=== PATIENT | female | born 1940 | race Caucasian/White ===

== ENCOUNTER 2016-10-05 02:09 | Inpatient (IN) ==
[2016-10-03 11:03] LABS: BILIRUBIN URINE NEGATIVE (NEGATIVE); BLOOD URINE NEGATIVE (NEGATIVE); COLOR YELLOW; GLUCOSE URINE NEGATIVE (NEGATIVE); LEUKOCYTES URINE NEGATIVE (NEGATIVE); NITRITE URINE NEGATIVE (NEGATIVE); PROTEIN URINE 30 mg/dL (NEGATIVE); SP GRAVITY URINE 1.016; TURBIDITY URINE CLEAR (CLEAR); URINE MICRO REVIEW NEEDED? NO; URINE SOURCE VOIDED; UROBILINOGEN URINE 2 mg/dL (NORMAL)
[2016-10-03 11:05] LABS: UR EPITHELIAL CELLS <10 /HPF (<10); URINE BACTERIA 4+ /HPF; URINE RBC <10 /HPF (<10); URINE WBC <10 /HPF (<10)
[2016-10-03 11:13] LABS: BASO% 0.3 % (0.0-0.8); EOS# 0.02 X1000 (0.0-0.7); EOS% 0.6 % (0.0-10.0); HEMATOCRIT 35.2 % (37.0-47.0); HEMOGLOBIN 11.6 g/dL (12.0-16.0); LYMPH# 0.96 X1000 (1.2-3.4); LYMPH% 26.8 % (20.5-51.1); MANUAL DIFF NEEDED? YES; MCH 36.7 PG (27-31); MCV 111.4 FL (81-99); MONO# 0.15 X1000 (0.11-0.59); MONO% 4.2 % (1.7-9.3); MPV 10.3 FL (7.4-10.4); NEUT% 68.1 % (42.2-75.2); PLT 131 X1000 (130-400); RBC 3.16 XMIL (4.2-5.4)
[2016-10-03 11:15] LABS: INR 1.11; PROTIME 11.7 Seconds (9.2-11.7)
[2016-10-03 11:32] LABS: CALCIUM 9.1 mg/dL (8.8-10.2)
[2016-10-03 11:36] LABS: LYMPHS 22 % (21-51)
--- NOTE | 2016-10-03 16:12 | EKG Report ---
Test Performed on : 10/03/2016 09:51:18 AM Test Reason : PAT Blood Pressure : / mmHG Vent. Rate : 069 BPM Atrial Rate : 069 BPM P-R Int : 092 ms QRS Dur : 102 ms QT Int : 414 ms P-R-T Axes : -18 -14 040 degrees QTc Int : 443 ms Sinus rhythm. with short RI with premature supraventricular complexes. Incomplete right bundle branch block Cannot rule out Anteroseptal infarct (cited on or before 10-JUN-2016) Abnormal ECG When compared with ECG of 10-JUN-2016 20:01, No significant change was found Confirmed by Karis MCNAMARA, Silvano Jefferson ([id number]) on 10/03/2016 7:32:18 PM
[2016-10-05] MEDS ORDERED: COLACE ONE (10:40)
[2016-10-05] MEDS ORDERED: REGLAN ONE (10:41)
[2016-10-05] MEDS ORDERED: PEPCID ONE (10:41)
[2016-10-05] MEDS ORDERED: KEFZOL 2 GM/D5W 2 GM/50 ML IVPB ONE (10:41)
[2016-10-05] MEDS ORDERED: LYRICA ONE (10:41)
[2016-10-05] MEDS ORDERED: LR 1,000 ML ONE ×2 (10:41→16:25)
[2016-10-05] MEDS ORDERED: CELEBREX ONE (10:42)
[2016-10-05] MEDS ORDERED: TOPROL XL PO ONE (11:45)
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
[2016-10-05] MEDS ORDERED: TORADOL ONE (13:22)
[2016-10-05] MEDS ORDERED: DURAMORPH ONE (13:22)
[2016-10-05] MEDS ORDERED: MARCAINE 0.25% PF/EPI 1:200,000 ONE (13:23)
[2016-10-05] MEDS ORDERED: EXPAREL 1.3% ONE (13:23)
[2016-10-05] MEDS ORDERED: NEOSPORIN G.U. IRRIGANT ONE (13:23)
[2016-10-05] MEDS ORDERED: CYKLOKAPRON 1,000 MG/NS 1,000 MG/100 ML IVPB ONE (13:23)
[2016-10-05] MEDS ORDERED: SODIUM CHLORIDE 0.9% ONE (13:23)
[2016-10-05] MEDS ORDERED: CLAVE SECONDARY SET 11953 ONE (13:24)
[2016-10-05] MEDS ORDERED: VANCOMYCIN ONE (13:29)
[2016-10-05 15:40] LABS: URINE MICRO REVIEW NEEDED? NO; URINE SOURCE CATH
[2016-10-05 15:53] LABS: BILIRUBIN URINE NEGATIVE (NEGATIVE); BLOOD URINE NEGATIVE (NEGATIVE); COLOR STRAW; GLUCOSE URINE NEGATIVE (NEGATIVE); LEUKOCYTES URINE NEGATIVE (NEGATIVE); NITRITE URINE NEGATIVE (NEGATIVE); PROTEIN URINE NEGATIVE (NEGATIVE); SP GRAVITY URINE 1.005; TURBIDITY URINE CLEAR (CLEAR); UROBILINOGEN URINE NORMAL (NORMAL)
[2016-10-05 15:54] LABS: UR EPITHELIAL CELLS <10 /HPF (<10); URINE BACTERIA 4+ /HPF; URINE RBC <10 /HPF (<10); URINE WBC <10 /HPF (<10)
[2016-10-05] MEDS ORDERED: NS 1,000 ML ONE (15:57)
[2016-10-05] MEDS ORDERED: FENTANYL ONE (16:03)
[2016-10-05] MEDS ORDERED: DIPRIVAN 1% ONE (16:03)
[2016-10-05] MEDS ORDERED: MORPHINE ONE (16:04)
[2016-10-05] MEDS ORDERED: DEMEROL ONE (16:11)
[2016-10-05] MEDS ORDERED: ZOFRAN ONE (16:24)
[2016-10-05] MEDS ORDERED: XYLOCAINE-MPF 2% ONE (16:24)
[2016-10-05] MEDS ORDERED: EPHEDRINE ONE (16:24)
--- NOTE | 2016-10-05 16:24 | Diag Imaging Result Document ---
PROCEDURE NAME: SHOULDER 1 VIEW RIGHT - 10/05/2016 RIGHT SHOULDER 1 VIEW: COMPARISON: 07/19/2016. FINDINGS: There has been total right shoulder arthroplasty. Alignment is anatomic. No hardware fracture or loosening. IMPRESSION: No evidence of complication.
[2016-10-05] MEDS ORDERED: DECADRON ONE (16:25)
[2016-10-05] MEDS ORDERED: OFIRMEV 1000 MG/ISOTONIC SOLN 1,000 MG/100 ML BOTTLE ONE (16:25)
[2016-10-05] MEDS ORDERED: QUELICIN (DOSE) ONE (16:25)
[2016-10-05] MEDS: DEMEROL ONE ×2 (16:33→16:38)
[2016-10-05] MEDS ORDERED: MORPHINE IV PRN (16:36)
[2016-10-05] MEDS ORDERED: NS 1,000 ML IV SCH (16:45)
[2016-10-05] MEDS ORDERED: ZOFRAN PO PRN (18:43)
[2016-10-05] MEDS: PERIDEX MT SCH (20:37)
[2016-10-05] MEDS: OXY IR PO PRN (20:37)
[2016-10-05] MEDS: TOPROL XL PO SCH (20:38)
[2016-10-05] MEDS: MARINOL PO SCH (22:13)
[2016-10-05] MEDS: KEFZOL 1 GM/D5W 1 GM/50 ML IVPB IV SCH (23:05)
--- NOTE | 2016-10-05 23:35 | OPERATIVE NOTE ---
PROCEDURE DATE: 10/05/2016 PREOPERATIVE DIAGNOSIS: Right displaced proximal humeral fracture. POSTOPERATIVE DIAGNOSIS: Right displaced proximal humeral fracture. PROCEDURE: Right reverse shoulder arthroplasty with DePuy Delta Xtend size 12, cemented stem, 42 + 9 humeral cup, 42 eccentric Glenosphere and standard metaglene. SURGEON: Bienvenido Jacob MD SERVICE ASSISTANT: Jimmy Chen SECOND TOWN MANAGER: LAVERNE Bettencourt and Alonzo Frye RN. ANESTHESIA: General. IV FLUIDS: 1400 mL lactated Ringer. ESTIMATED BLOOD LOSS: 200 mL. COMPLICATIONS: None. INDICATION: The patient is a 76-year-old female who is approximately 2-1/2 months status post injury to her right shoulder. The patient sustained a proximal humeral fracture. She seemed to have some residual displacement and has continued with significant pain and discomfort and recommendation to proceed with right reverse shoulder arthroplasty offered. Risks and benefits of surgery were explained, including the risks of anesthesia, , bleeding, infection, failure to relieve pain, postop stiffness, nerve injury, blood clots and other imponderables. All questions were answered. The patient and family wished to proceed with surgery. DETAILS OF OPERATION: The patient was taken to the operating room and placed supinely on the operating table. Once adequate anesthesia was obtained, the patient was placed in semi-[place] beach-chair position. The right shoulder was subsequently prepped and draped in usual sterile fashion. A standard deltopectoral incision made with skin knife. Medial and lateral skin envelopes were developed. The deltopectoral interval was then developed and the cephalic vein was retracted laterally. Conjoined tendon was then elevated as well and Martinez retractor was placed. The fracture site was identified. Debridement of the callus and tissue overlying the fracture site was then performed with a deep knife as well as with a rongeur. After this had been performed, the displaced humeral head was identified it was then removed after releasing the soft tissue. After that had been performed, attention was then turned to the glenoid. Circumferential dissection was then performed with a deep knife. After this had been performed, a guide was then placed and the guide pin was placed in position. The reaming was then conducted of the glenoid. The central hole was then dilated. The wound was copiously irrigated with antibiotic pulsatile lavage. A standard metaglene was then placed. Two locking screws were placed and 2 nonlocking screws. It had good purchase. The wound was copiously once again. This was followed by a 42 eccentric Glenosphere with eccentricity placed inferiorly. After this had been performed, attention was then turned to the proximal humerus. Reaming was then conducted up to size 12. A trial stem was then placed to determine the appropriate height. After this had been performed, the intramedullary canal was copiously with antibiotic pulsatile lavage while vancomycin was mixed in cement on back table. Cement was then placed in the intramedullary canal and a size 12 cemented stem was then placed at the appropriate height and approximately 20 degrees of retroversion. Excess cement was removed with a [place]. After cement had cured, trial cups were then placed. A +9 humeral cup had excellent range of motion and stability. Trial cup was then removed. The wound was copiously irrigated with antibiotic pulsatile lavage. A 42 humeral cup was then placed on the stem. The shoulder was then reduced, carried through range of motion, had excellent stability and range of motion. The wound was copiously irrigated once again. 2-0 Vicryl was then used to repair the subcutaneous tissue, followed by a running 2-0 Prolene. Adaptic, sterile 4 x 4's, ABD pad, and tape was applied to the right shoulder, followed by shoulder immobilizer. All counts were correct. Patient tolerated procedure well and was transferred to the recovery room in stable condition. cc: Bienvenido Jacob MD
[2016-10-06] MEDS: OXY IR PO PRN ×5 (05:30→21:01)
[2016-10-06] MEDS: KEFZOL 1 GM/D5W 1 GM/50 ML IVPB IV SCH (05:30)
[2016-10-06 06:09] LABS: CALCIUM 7.7 mg/dL (8.8-10.2); HEMATOCRIT 23.9 % (37.0-47.0); HEMOGLOBIN 7.9 g/dL (12.0-16.0); POTASSIUM 4.2 mmol/L (3.5-5.1)
[2016-10-06] MEDS: TOPROL XL PO SCH ×2 (09:20→20:58)
[2016-10-06] MEDS: PERIDEX MT SCH ×2 (09:20→21:01)
[2016-10-06] MEDS: MARINOL PO SCH ×2 (09:23→20:58)
--- NOTE | 2016-10-06 10:05 | PROGRESS NOTE ---
DATE: 10/06/2016 SUBJECTIVE: The patient is a pleasant, 76-year-old female, who is 1 day status post right reverse shoulder arthroplasty for a proximal humeral fracture. She is currently resting comfortably. OBJECTIVE: On physical exam, wound looks good. There are no signs of infection. She is grossly neurovascularly intact, able to flex thumb and fingers. LABS: Hemoglobin 7.9, hematocrit is 23.9. IMPRESSION: Postoperative day #1 status post right reverse shoulder arthroplasty. PLAN: At this point, we will change her dressing, discontinue her drain, and Hep-Lock her IV. We will mobilize physical therapy. She is currently asymptomatic with her acute blood loss anemia. We will consult Customer Security Clerk for discharge planning. cc: Bienvenido Jacob MD
--- NOTE | 2016-10-06 13:05 | Diag Imaging Result Document ---
PROCEDURE NAME: CHEST-2 VIEWS - 10/06/2016 FRONTAL AND LATERAL CHEST, 2 VIEWS. COMPARISON: Compared to 07/19/2016. FINDINGS: There has been prior surgery to the lower thoracic spine and to the right shoulder. The lungs are hyperexpanded. There is an increased AP diameter to the chest. The pulmonary vessels are small. There are multiple old rib fractures and thoracic compression fractures. The heart is not enlarged. No infiltrates. IMPRESSION: 1. Emphysema. 2. No pneumonia. 3. Multiple old rib fractures and thoracic compression fractures. [facility]
[2016-10-07] MEDS: OXY IR PO PRN (01:24)
[2016-10-07 05:50] LABS: HEMATOCRIT 24.8 % (37.0-47.0); HEMOGLOBIN 7.9 g/dL (12.0-16.0)
[2016-10-07] MEDS ORDERED: NORCO-10 PO PRN (06:39)
[2016-10-07] MEDS: TOPROL XL PO SCH ×2 (09:43→20:05)
[2016-10-07] MEDS: PERIDEX MT SCH ×2 (09:43→20:05)
[2016-10-07] MEDS: MARINOL PO SCH ×2 (09:43→20:04)
--- NOTE | 2016-10-07 10:00 | PROGRESS NOTE ---
DATE: 10/07/2016 SUBJECTIVE: June Wayne is a 76-year-old female, who is postoperative day 2 from a right reverse total shoulder arthroplasty. She complains of increased pain and confusion last night on the OxyContin. She requests to change to Lortab 10 #2 that she takes at home. OBJECTIVE: General: She is a well-developed, well-nourished female. She is alert and cooperative with the exam. She does not appear to be in any distress. Extremities: Her dressing is clean, dry, and intact. Her arm is neurovascularly intact. ASSESSMENT: Stable right reverse shoulder arthroplasty. PLAN: We will change her to [place] per her request. We will have her continue working on her physical therapy, and she will plan on going to rehab on Sunday. cc: MD Bienvenido Dowell MD
[2016-10-07] MEDS: NORCO-10 PO PRN ×3 (11:18→20:04)
[2016-10-08] MEDS: NORCO-10 PO PRN ×5 (00:15→22:26)
[2016-10-08 06:04] LABS: HEMATOCRIT 24.6 % (37.0-47.0); HEMOGLOBIN 7.8 g/dL (12.0-16.0)
[2016-10-08] MEDS: MARINOL PO SCH ×2 (08:23→22:22)
[2016-10-08] MEDS: TOPROL XL PO SCH ×2 (08:23→22:22)
[2016-10-08] MEDS: PERIDEX MT SCH ×2 (08:23→22:21)
[2016-10-08] MEDS ORDERED: MILK OF MAGNESIA PO PRN (19:04)
[2016-10-09] MEDS: NORCO-10 PO PRN ×4 (03:52→11:48)
--- NOTE | 2016-10-09 07:32 | PROGRESS NOTE ---
DATE: 10/09/2016 SUBJECTIVE: The patient is a 76-year-old female who is 4 days status post right reverse shoulder arthroplasty for a fracture. Patient is feeling better this morning. Had an episode of confusion over the weekend and her pain medication was switched from OxyIR to hydrocodone. She is much better this morning. She is awake, alert, and her confusion has resolved. PHYSICAL EXAMINATION: On physical exam of the right shoulder, her wound looks good. There are no signs of infection. She is neurovascularly intact throughout, able to flex thumb and fingers. DIAGNOSTIC DATA: Her hemoglobin and hematocrit from yesterday stabilized at 7.8 and 24.6, and she is asymptomatic. IMPRESSION: Postoperative day #4 status post right reverse total shoulder arthroplasty. PLAN: At this point, it is felt that the patient would benefit from inpatient rehabilitation. We will plan on discharging today. cc: Bienvenido Jacob MD
[2016-10-09 08:11] VITALS: BP 168/67
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
[2016-10-09] MEDS: MARINOL PO SCH (09:42)
[2016-10-09] MEDS: TOPROL XL PO SCH (09:42)
[2016-10-09] MEDS: PERIDEX MT SCH (09:42)
== END 2016-10-09 12:16 ==
LOC: SURHOLD 02:09 → 4N 16:59
PROVIDERS: ADMIT Orthopaedic Surgery Adult Reconstructive Orthopaedic Surgery; ATTEND Orthopaedic Surgery Adult Reconstructive Orthopaedic Surgery

== ENCOUNTER 2017-02-02 14:27 | Inpatient (IN) ==
[2017-02-02] MEDS ORDERED: NS 1,000 ML IV ONE ×3 (14:54→20:03)
[2017-02-02 15:47] LABS: ALLEN TEST YES; BE -7.1 mmoll (-3.0-3.0); BLOOD TYPE ARTERIAL; DRAW SITE L RADIAL; METHB 0.2 % (0.0-1.5); O2(CT) 12.3 mL/dL (15.0-23.0); PCO2(98.6) 31 mmHg (35-45); PO2(98.6) 86 mmHg (60-100); SAMPLE BLOOD; pH(98.6) 7.36 (7.35-7.45)
[2017-02-02 15:49] LABS: MODALITY CANNULA
[2017-02-02 15:49] LABS: BASO% 0.8 % (0.0-0.8); HEMOGLOBIN 9.4 g/dL (12.0-16.0); LYMPH# 0.18 X1000 (1.2-3.4); LYMPH% 15.1 % (20.5-51.1); MANUAL DIFF NEEDED? NO; MCH 34.1 PG (27-31); MCHC 31.3 g/dL (33-37); MCV 108.7 FL (81-99); MONO# 0.02 X1000 (0.11-0.59); MONO% 1.7 % (1.7-9.3); MPV 10.1 FL (7.4-10.4); NEUT% 82.4 % (42.2-75.2); PLT 141 X1000 (130-400); RBC 2.76 XMIL (4.2-5.4)
[2017-02-02 15:52] LABS: INR 1.23; PROTIME 13.1 Seconds (9.2-11.7); PTT 22.8 Seconds (22.0-36.0)
--- NOTE | 2017-02-02 15:53 | EKG Report ---
Test Performed on : 02/02/2017 3:39:32 PM Test Reason : Chest Pain Blood Pressure : / mmHG Vent. Rate : 097 BPM Atrial Rate : 100 BPM P-R Int : 080 ms QRS Dur : 094 ms QT Int : 356 ms P-R-T Axes : 094 008 088 degrees QTc Int : 452 ms Undetermined rhythm Nonspecific ST and T wave abnormality Abnormal ECG When compared with ECG of 18-JAN-2017 19:54, Current undetermined rhythm precludes rhythm comparison, needs review Criteria for Anterior infarct are no longer present T wave inversion no longer evident in Anterior leads Nonspecific T wave abnormality now evident in Lateral leads Unconfirmed Result
[2017-02-02 16:02] LABS: ALBUMIN 3.4 g/dL (3.5-5.0); CALCIUM 7.9 mg/dL (8.8-10.2); MAGNESIUM 1.2 mg/dL (1.5-2.7); POTASSIUM 3.1 mmol/L (3.5-5.1); TOTAL BILIRUBIN 1.29 mg/dL (0.20-1.00); TOTAL PROTEIN 9.5 g/dL (6.3-8.3)
[2017-02-02] MEDS ORDERED: MAGNESIUM SULFATE 2 GM/S.W.I. 2 GM/50 ML IVPB IV ONE (16:03)
[2017-02-02] MEDS ORDERED: NS + KCL 40 MEQ 1,000 ML IV SCH (16:03)
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
--- NOTE | 2017-02-02 16:35 | Diag Imaging Result Doc PS360 ---
CT NECK W/O CONTRAST - 02/02/2017 INDICATION: R neck swelling TECHNIQUE: A CT dose reduction protocol was used. COMPARISON: None FINDINGS: There is significant subcutaneous and deep soft tissue edema throughout the right neck extending from the mandibular angle to the clavicle. No definite focal drainable fluid collection. No abnormal soft tissue gas. No radiodense foreign bodies. There is effacement of the vallecula on the right side due to edema of the hypopharynx. Otherwise, no significant deviation of the pharynx. The thyroid gland is atrophic. There are some lucent bony lesions in the cervical spine scattered throughout. These are mostly well-defined. No fracture or dislocation. Significant multilevel disc degeneration is present. IMPRESSION: 1. Nonspecific soft tissue edema of the right side of the neck. No obvious mass or drainable fluid collection. 2. Effacement of the right vallecula due to edema of the hypopharynx. Please monitor for signs of airway compromise. 3. Abnormal bony lesions throughout the cervical and thoracic spine. Concerning for myeloma or metastatic disease. Electronically signed by Alfred Gallardo 02/02/2017 4:33 PM
--- NOTE | 2017-02-02 16:39 | Diag Imaging Result Doc PS360 ---
CT THORAX W/O CONTRAST - 02/02/2017 INDICATION: R NECK SWELLING TECHNIQUE: A CT dose reduction protocol was used. COMPARISON: Previous chest x-rays FINDINGS: There are numerous old bilateral chronic rib fractures. One of these on the left side exhibits nonunion. There are several thoracic spine compression fractures. Stable fusion rods at the lower thoracic spine. The sternum demonstrates ill-defined lucency and deformity consistent with bony disease such as myeloma. There is a right shoulder prosthesis. There is ill-defined edema throughout the right supraclavicular fossa. This extends to the anterior mediastinum. No drainable fluid collections. No mass or adenopathy. The lungs are fairly clear. The major airways are clear. Upper abdominal images are unremarkable. IMPRESSION: 1. Multifocal lucent bony lesions suggesting myeloma or metastatic disease. 2. No specific cardiothoracic disease otherwise. Electronically signed by Alfred Gallardo 02/02/2017 4:36 PM
--- NOTE | 2017-02-02 16:41 | Diag Imaging Result Doc PS360 ---
EXAM: CHEST-PORTABLE HISTORY: [place]ough TECHNIQUE: Single view of the chest was performed portably. COMPARISON: 01/23/2017 FINDINGS: Patient is rotated to the right. There are postsurgical changes thoracolumbar spine with rods and screws and a total right shoulder arthroplasty. There are multiple bilateral rib fractures which appear old. There are prominent interstitial markings compatible with chronic interstitial edema or fibrosis. There is cardiomegaly. There is blunting of the left lateral costophrenic angle consistent with a small amount of pleural fluid or thickening. No acute abnormalities are demonstrated. IMPRESSION: Stable chest. Interstitial prominence suggestive of chronic interstitial edema or fibrosis. Small amount of left pleural fluid versus thickening. Electronically signed by Lita Anderson 02/02/2017 4:38 PM
[2017-02-02] MEDS ORDERED: DECADRON IV ONE (17:04)
[2017-02-02] MEDS ORDERED: ZOSYN 3.375 GM in NS 50 ML IV ONE (17:05)
[2017-02-02] MEDS ORDERED: VANCOMYCIN 1 GM/NS 1 GM/250 ML IVPB IV ONE (17:05)
[2017-02-02] MEDS ORDERED: POTASSIUM CHLORIDE 40 MEQ/SWI 40 MEQ/100 ML IVPB IV ONE (17:57)
--- NOTE | 2017-02-02 18:08 | PROVIDER DOCUMENTATION ---
This chart was entered by Karol Ko Scribe, acting as scribe for Kathy Koroma MD. HPI-Rash/Wound/ReCheck - General Chief Complaint: Shortness of Breath Stated Complaint: neck swelling Time Seen by Provider: 02/02/17 14:54 Source: patient, family (daughter and son) Allergies/Adverse Reactions: Allergies Allergy/AdvReac Type Severity Reaction Status Date / Time No Known Allergies Allergy Verified 01/16/17 13:16 Home Medications: Home Medication List Medication Instructions Recorded Confirmed Last Taken Type Metoprolol Succinate 50 mg PO BID 10/05/16 01/18/17 01/17/17 08:00 History Fentanyl 25 mcg TD Q3D 12/04/16 01/18/17 01/17/17 08:10 History Hydrocodone/APAP 10 mg/325 mg 1 each PO Q6H PRN PRN 01/18/17 01/18/17 Unknown History [[place]-10] Ondansetron [Ondansetron Odt] 8 mg PO TID PRN PRN 01/18/17 01/18/17 Unknown History - History of Present Illness-Dermatology Nature of Presenting Problem: Pt is 77 y/o F presents to the ED with swelling, erythema and tenderness to right side of neck. Anusha PRATT states seeing Pt this am and Pt's neck was fine. Pt's daughter states she called Anusha Victor this am around 1030 and Anusha Victor RN stated to Pt's daughter that swelling and erythema was present and Pt was given an antibiotic prior to symptoms starting. Pt's son states Pt is on chemo and Pt had chemo yesterday. Pt's son states Dr. Vaughan changed her chemo meds yesterday. Pt's son states cancer has been present for 2 years. Location: reports: other (right side neck) Quality: reports: painful Severity: reports: moderate Onset/Duration: reports: this morning (1030) Timing: reports: still present, getting worse Context/Associated Symptoms: reports: swelling/mass/lumps (swelling right side of neck), tender area (right side of neck), other (erythema to right side of neck) Identifiable cause?: No Locality of Occurance: Home Similar Symptoms Previously?: Yes (present since this am ) Recently seen or treated by another doctor?: Yes (Pt had chemo yesterday. ) Review of Systems - Adult - REVIEW OF SYSTEMS - ADULT Constitutional: reports: no symptoms reported Eyes: reports: no symptoms reported Ears, Nose, Mouth & Throat: reports: no symptoms reported Cardiovascular: reports: no symptoms reported Respiratory: reports: no symptoms reported Gastrointestinal: reports: no symptoms reported Genitourinary: reports: no symptoms reported Musculoskeletal: reports: neck pain (right side of neck). denies: back pain, joint pain Integumentary: reports: other (erythema and swelling to right side of neck). denies: hives, itching, rash Neurological: reports: no symptoms reported Psychiatric: reports: no symptoms reported Endocrine: reports: no symptoms reported Hematologic/Lymphatic: reports: no symptoms reported Allergic/Immunologic: reports: no symptoms reported All Other Systems: Reviewed and Negative Past History - Adult - PAST MEDICAL HISTORY-ADULT Review of Records: reports: Nursing Assessment Review, Medications Reviewed, Social history reviewed & non-contributory. Major Childhood Illnesses: reports: denies history Cardiovascular: reports: HTN Respiratory: reports: denies history Gastrointestinal: reports: denies history Obstetrical/Gynecological: reports: denies history Genitourinary: reports: denies history Musculoskeletal: reports: denies history Neurological: reports: cancer/tumor Endocrine/Immune: reports: cancer Other Conditions: reports: denies history - PRIOR SURGERIES/PROCEDURES Surgical/Procedure History: reports: hysterectomy, back/neck (back), other ( hemerrhoids, brain surgery) - IMMUNIZATION STATUS Childhood Immunizations: See Nurse Assessment Flu Vaccine: See Nurse Assessment - FAMILY HISTORY Family History: reviewed, not pertinent - SOCIAL HISTORY Smoking: denies Substance Use: denies Living Situation: family Physical Exam-General - PHYSICAL EXAM-ADULT Initial Vital Signs Reviewed: Yes - CONSTITUTIONAL General Appearance: alert, no apparent distress. negative: lethargic, slow to respond - EYES Eyes: PERRL/EOMI, pink conjunctivae. negative: pale conjunctivae, sunken eyes - HEAD, EARS, NOSE, MOUTH & THROAT HENMT: normocephalic/atraumatic, moist mucous membranes, normal ENT inspection. negative: angioedema, hearing deficit - NECK Neck: tender lateral (right), other (swelling and erythema to right side of neck ). negative: normal inspection - RESPIRATORY Respiratory: chest non-tender, lungs clear, normal breath sounds. negative: crackles, rhonchi, wheezing, increased rate - CARDIOVASCULAR Cardiovascular: normal peripheral pulses, regular rate, rhythm. negative: tachycardia, systolic murmur - GASTROINTESTINAL (ABDOMEN) Abdominal Exam: normal bowel sounds, non tender, soft. negative: distended, guarding, hernia - MUSCULOSKELETAL Back Exam: normal inspection, no CVA tenderness, no vertebral tenderness. negative: ecchymosis, swelling Extremity: normal range of motion, normal inspection. negative: deformity, erythema, swelling - SKIN Integumentary: normal turgor, erythema (right sick of neck), swelling (right side of neck), tenderness (right side of neck), warm (right side of neck). negative: diaphoresis, ecchymosis, rash - NEUROLOGIC Neurologic: grossly normal. negative: aphasia, facial droop - PSYCHIATRIC Psych/Mental Status: normal mood/affect, oriented x 3. negative: paranoid, tearful Progress - PLAN OF CARE/RESULTS Progress/Plan/Lab Results: Vital Signs - 8 hr 02/02/17 14:37 02/02/17 17:33 Temperature 98.5 F Pulse Rate 95 H 105 H Respiratory Rate 18 24 Blood Pressure 104/49 125/58 O2 Sat by Pulse Oximetry 95 95 Laboratory Results - last 24 hr 02/02/17 02/02/17 02/02/17 15:17 15:17 15:17 WBC 1.19 L RBC 2.76 L Hgb 9.4 L Hct 30.0 L MCV 108.7 H MCH 34.1 H MCHC 31.3 L RDW Std Deviation 23.1 H Plt Count 141 MPV 10.1 Immature Gran % (Auto) 0.0 Neut % (Auto) 82.4 H Lymph % (Auto) 15.1 L [place] % (Auto) 1.7 Eos % (Auto) 0.0 Baso % (Auto) 0.8 Immature Gran # (Auto) 0.00 Neut # (Auto) 0.98 L Lymph # (Auto) 0.18 L [place] # (Auto) 0.02 L Eos # (Auto) 0.00 Baso # (Auto) 0.01 PT INR PTT (Actin FS) Specimen Type Sample Site pH pCO2 pO2 HCO3 Base Excess Oxyhemoglobin ABG O2 Sat (Calculated) ABG O2 Saturation ABG Carboxyhemoglobin ABG Methemoglobin Yordy Test A-a O2 Difference Total Hemoglobin Lactate Blood Gas Modality FiO2 % Sodium 138 Potassium 3.1 L D Chloride 103 Carbon Dioxide 20 L Anion Gap 15 BUN 38 H D Creatinine 1.4 H Estimated GFR/1.73 m2 37 BUN/Creatinine Ratio 27 Glucose 112 H Calculated Osmolality 285 Calcium 7.9 L Magnesium 1.2 L Total Bilirubin 1.29 H AST 26 ALT 18 Alkaline Phosphatase 82 Creatine Kinase 21 L Troponin T [id number]-[id number] Pept 5531 H Total Protein 9.5 H Albumin 3.4 L Globulin 6.1 Albumin/Globulin Ratio 0.6 02/02/17 02/02/17 02/02/17 15:17 15:23 15:35 WBC RBC Hgb Hct MCV MCH MCHC RDW Std Deviation Plt Count MPV Immature Gran % (Auto) Neut % (Auto) Lymph % (Auto) [place] % (Auto) Eos % (Auto) Baso % (Auto) Immature Gran # (Auto) Neut # (Auto) Lymph # (Auto) [place] # (Auto) Eos # (Auto) Baso # (Auto) PT 13.1 H INR 1.23 PTT (Actin FS) 22.8 Specimen Type ARTERIAL Sample Site L RADIAL pH 7.36 pCO2 31 L pO2 86 HCO3 19.4 L Base Excess -7.1 L Oxyhemoglobin 96.3 ABG O2 Sat (Calculated) 12.3 L ABG O2 Saturation 97.0 ABG Carboxyhemoglobin 0.50 ABG Methemoglobin 0.2 Yordy Test YES A-a O2 Difference 75.0 Total Hemoglobin 9.0 L Lactate 3.90 H Blood Gas Modality CANNULA FiO2 % 28.0 Sodium Potassium Chloride Carbon Dioxide Anion Gap BUN Creatinine Estimated GFR/1.73 m2 BUN/Creatinine Ratio Glucose Calculated Osmolality Calcium Magnesium Total Bilirubin AST ALT Alkaline Phosphatase Creatine Kinase Troponin T < 0.010 Pxi-X-Sazdwtnnucm Pept Total Protein Albumin Globulin Albumin/Globulin Ratio Orders Category Date Time Status Cardiac Monitoring DIRECTED Care 02/02/17 14:55 Active Saline Loc NOW Care 02/02/17 14:55 Active CHEST-PORTABLE [RAD] Stat Exams 02/02/17 14:[address] HEAD W/O CONTRAST [CT] Stat Exams 02/02/17 15:[address] NECK W/O CONTRAST [CT] Stat Exams 02/02/17 14:[address] THORAX W/O CONTRAST [CT] Routine Exams 02/02/17 Completed ABG [RESP] Routine Lab 02/02/17 15:35 Completed BLOOD CULTURE [BLDCUL] Stat Lab 02/02/17 17:03 Results CBC WITH ELECTRONIC DIFF [HEME] Stat Lab 02/02/17 15:17 Completed CK PROFILE [SP CHEM] Stat Lab 02/02/17 15:17 Completed COMPREHENSIVE METABOLIC PANEL [CHEM] Stat Lab 02/02/17 15:17 Completed MAGNESIUM [CHEM] Stat Lab 02/02/17 15:17 Completed PRO B-NATRIURETIC PEPTIDE Stat Lab 02/02/17 15:17 Completed PROTIME WITH INR [COAG] Stat Lab 02/02/17 15:17 Completed PTT [COAG] Stat Lab 02/02/17 15:17 Completed TROPONIN T Stat Lab 02/02/17 15:23 Completed 0.9% Sodium Chloride Inj [Ns] 1,000 ml Med 02/02/17 14:54 Discontinued IV 999 mls/hr Dexamethasone [Decadron] Med 02/02/17 17:04 Discontinued 20 mg IV NOW ONE Magnesium Sulfate 2 gm/S.w.i. [Magnesium Sulfate 2 gm/S Med 02/02/17 16:03 Discontinued .w.i] 2 gm in 50 ml IV NOW Ns + KCl 40 Meq 1,000 ml Med 02/02/17 16:03 Active IV 150 mls/hr Piperacillin/Tazobactam [Zosyn] 3.375 gm Med 02/02/17 17:05 Discontinued 0.9% Sodium Chloride Inj [Ns] 50 ml IV NOW Vancomycin 1 gm/Ns Med 02/02/17 17:05 Active 1 gm in 250 ml IV NOW EKG [EKG] Stat Ther 02/02/17 14:55 Draft Transfer/Admit Order [TRANSFER] Routine Transfer 02/02/17 17:20 Ordered Result Diagrams: 02/02/17 15:17 02/02/17 15:17 - XRAY 1 XRAY Study: Chest Impression: Abnormal (stable chest. interstitial prominence suggestive of chronic interstitial edema or fibrosis. small amount of left pleural fluid versus thickening.) - CT/MRI 1 CT Study: Head Impression: Normal CT Results: no acute disease or change from prior 2 CT Study: Cervical Spine Impression: Abnormal (nonspecific soft tissue edema of the right side of the neck. no obvious mass or drainable fluid collection. effacement of the right vallecula due to edema of the hypopharynx. please monitor for signs of airway compromise. abnormal bony lesions throughout the cervical and thoracic spine. concerning for myeloma or metastatic disease.) 3 CT Study: Thorax Impression: Abnormal (multifocal lucent bony lesions suggesting myeloma or metastatic disease. no specific cardiothoracic disease otherwise.) - CONSULTS/PCP/HOSPITALIST Notification #1 *Consult/PCP/Hospitalist*: LAVERNE Kendall for Hospitalist Time Discussed: 17:10 (Dr. Mejia accepted admit ) Reason/Comments: Dr. Koroma consulted with LAVERNE Kendall Consult Disposition: Admit #2 Consult: Dr. Carbajal's nurse Time Discussed: 17:22 Reason/Comments: Dr. Koroma consults with Dr. Carbajal's nurse about Pt. #3 Consult: Dr. Carbajal Time Discussed: 17:45 Reason/Comments: Dr. Koroma consulted with Dr. Carbajal about Pt. Consult Disposition: Will see in ED Departure - Departure Date of Disposition Decision: 02/02/17 Time of Disposition Decision: 17:10 DIAGNOSIS: Neck mass, History of chemotherapy, Multiple myeloma DIAGNOSIS: (Ruled Out): Pulsatile neck mass, Encounter for chemotherapy management Disposition: ADMITTED INPATIENT 09 Certified Medical Emergency: Emergent Condition: Stable Referrals and Follow-Ups: Julien Rosario [Primary Care Provider] - - Critical Care Note This patient required my direct & personal management of CC.: Yes Total Time (mins): 50 Critical Care Statement: This patient required my direct personal management to treat or rule out processes, the absence of which, could potentiallly result in sudden, clinically significant life or limb threatening deterioration. Attestation - Physician/ VALENTIN Attestation The physician spent face to face time with patient:: Yes Advanced Practice Provider documentation review:: Supervising physician onsite and consulted in the evaluation and care of this patient. The physician did have a face to face encounter with the patient. This chart was documented by the indicated scribe, (Karol Ko Scribe) and accurately reflects the services I performed and decisions made by me, Kathy Koroma MD, as attested by the provider's signature.
[2017-02-02] MEDS ORDERED: S2 RACEPINEPHRINE 2.25% INH ONE (18:22)
--- NOTE | 2017-02-02 18:37 | HISTORY AND PHYSICAL ---
PCP: Dr. Julien Rosario. CHIEF COMPLAINT: Neck swelling. HISTORY OF PRESENT ILLNESS: Mrs. Wayne is a 77-year-old female who currently resides at [facility], [place] for geriatric psychiatric evaluation. Apparently she was having visual hallucinations, paranoia and agitation and was admitted there for evaluation. She also has a significant history for multiple myeloma and is followed by Dr. Mcarthur. She received chemotherapy yesterday, apparently this was new chemo. This morning she started having significant swelling of her neck on the right side to the point where [facility], [place] became concerned and felt she needed ER evaluation. In the ER she had a head neck and chest CT, the neck CT showed nonspecific soft tissue edema of the right side of the neck but no obvious mass or drainable fluid. There was effacement of the right vallecula due to edema of the hypopharynx, there was also abnormal bony lesions throughout the cervical and thoracic spine. The patient herself is unable to give any type of history secondary to airway swelling and inability to talk. Currently she is on nasal cannula with maximum O2 saturation of 90% and audible stridor. Her laboratory data shows leukopenia and macrocytosis, she also has mild renal insufficiency and elevated total bilirubin. On ABG she is oxygenating and ventilating well but she does have a lactic acid of 3.9. Blood cultures have been obtained and broad-spectrum antibiotics have been initiated. We have discussed the case with the ER physician and ENT who plans to take her to immediate surgery. It is likely the patient will need intubation for airway protection, for this we will call anesthesia or possibly do it preoperatively. As such, she is critical and will be going to the ICU. PAST MEDICAL HISTORY: 1. Multiple myeloma on chemotherapy with most recent treatment yesterday. 2. Dementia. 3. History of Valium abuse. 4. Benign brain tumor status post craniotomy in 1990. 5. Hypertension. 6. Hyperlipidemia. 7. Chronic anemia. SURGICAL HISTORY: She has had a right shoulder replacement, hysterectomy, ORIF of the right leg, lumbar surgery and craniotomy. SOCIAL HISTORY: She currently resides at [facility], [place]. She is not a smoker. She does not drink. History of benzodiazepine abuse. FAMILY HISTORY: Noncontributory. REVIEW OF SYSTEMS: Unable to obtain. HOME MEDICATIONS: Currently being compiled. ALLERGIES: No known drug allergies. PHYSICAL EXAMINATION: VITAL SIGNS: Blood pressure is 125/58, heart rate 105, respiratory 24, O2 saturation 90% on 2 L, temperature is 98.5 degrees. GENERAL: This is a chronically ill and elderly appearing 77-year-old female lying in hospital bed in mild to moderate respiratory distress. NEUROLOGIC: She follows commands but is unable to speak clearly so orientation questions are impossible to obtain at this time. There is no overt focal deficits. HEENT: Head is atraumatic and normocephalic. Her pupils are equal, round and reactive to light. Oral mucosa is dry. Oropharynx is very difficult to examine at this time as the patient is unable to really open her mouth. There is significant swelling of the right neck and is warm to touch. CHEST: Audible stridor in the upper airway. Her lung bases are diminished bilaterally. CV: Regular rate and rhythm. S1-S2 is noted. No murmurs. GI: Soft, nondistended, nontender. Bowel sounds positive. EXTREMITIES: No edema, clubbing or cyanosis. Pulses are diminished but palpable. DIAGNOSTIC DATA: Head CT shows stable craniotomy and resection changes at the posterior left occipital lobe, stable mild periventricular white matter chronic microvascular disease, no intracranial mass or hemorrhage. Neck CT please see HPI. Chest x-ray. Stable interstitial prominence suggestive of chronic interstitial edema, fibrosis, small amount of left pleural fluid versus thickening. Chest CT. Multifocal lucent body lesion suggesting myeloma or metastatic disease nonspecific, no specific cardiothoracic disease otherwise. EKG. Sinus rhythm, no acute ST or T abnormalities. Lab work. WBC 1.19, hemoglobin 9.4, hematocrit 30.4, MCV 108.7, platelet count 141,000, INR 1.23. ABG on nasal cannula, pH 7.36, CO2 31, O2 86, bicarb 19.4, base excess - 7.1, lactic acid 3.9. Sodium 138, potassium 3.1, chloride 103, CO2 20, anion gap 15, BUN 38, creatinine 1.4, glucose 112, calcium 7.9, magnesium 1.2, total bilirubin 1.29, AST 26, ALT 18, alkaline phosphatase 82, CK 21. Troponin negative. ProBNP 5531, albumin 3.4. ASSESSMENT/PLAN: 1. Right neck edema: Given the speed of onset and acuity this is likely infectious especially since she is immunocompromised, however would not rule out possible allergic reaction or malignancy. The patient is going to be evaluated by ENT and anesthesia and likely intubated and she will be going to surgery tonight for exploration and airway protection. Blood cultures have been obtained and we are starting vancomycin and Zosyn for broad-spectrum antibiotic coverage. Will monitor her ventilation oxygenation status closely in the ICU. 2. Likely sepsis: Patient has a lactic acid of almost 4 and while she does not have a white count she is actually leukopenic and mildly tachycardic and given the neck abscess this is likely the source. Antibiotics and fluid resuscitation has been initiated. We will continue to trend her lactic acid. 3. Macrocytic anemia. Currently her medications are being compiled. I believe she has a B12 deficiency and will make sure that all this is addressed. 4. Acute kidney injury: Creatinine 1.4 with a baseline around 1.1. We are going to bolus her another liter and continue IV fluids at around 100 mL an hour. 5. Hypokalemia, hypomagnesemia: These are being replaced and will recheck tomorrow. 6. Elevated proBNP. Patient has no overt signs of heart failure. She does have some renal insufficiency but again no signs of volume overload. Will monitor this closely and continue telemetry. Troponins are negative. There is no reports of any chest pain. She may need an echocardiogram given the fact that she is on chemotherapy. 7. Deep vein thrombosis prophylaxis. We will add SCDs and TEDs given the fact that she is going to surgery. CRITICAL CARE TIME WITH THE PATIENT: 45 minutes. I personally performed a face to face evaluation on this patient, also I review laboratory work and images, she has severe respiratory failure, ENT has been notified, she will have an ET tube placed, she is septic, Broad spectrum antibiotics, possible pressors, Lew Erickson MD. Dictated by LAVERNE Garcia for Lew Gonzalez MD cc: LAVERNE Garcia MD MTDD
[2017-02-02 18:50] LABS: ALLEN TEST YES; BE -10.1 mmoll (-3.0-3.0); BLOOD TYPE ARTERIAL; DRAW SITE R RADIAL; METHB 0.6 % (0.0-1.5); SAMPLE BLOOD
[2017-02-02 18:52] LABS: MODALITY NRB
[2017-02-02 18:53] LABS: PCO2(98.6) 51 mmHg (35-45); pH(98.6) 7.16 (7.35-7.45)
[2017-02-02] MEDS ORDERED: AFRIN NASAL SPRAY ONE (18:56)
[2017-02-02] MEDS ORDERED: DIPRIVAN 1% 1,000 MG/100 ML BOTTLE IV SCH (18:59)
[2017-02-02] MEDS ORDERED: AMIDATE IV ONE (18:59)
[2017-02-02] MEDS ORDERED: AMIDATE ONE (18:59)
[2017-02-02] MEDS ORDERED: QUELICIN IV ONE (18:59)
[2017-02-02] MEDS ORDERED: QUELICIN ONE (19:00)
[2017-02-02] MEDS: POTASSIUM CHLORIDE 20 MEQ/SWI 20 MEQ/100 ML IVPB IV SCH ×2 (19:50→20:15)
[2017-02-02] MEDS ORDERED: LEVOPHED 8 MG in D5 1/2 NS 250 ML IV SCH (20:00)
[2017-02-02] MEDS ORDERED: SODIUM CHLORIDE 0.9% INJ SCH (20:03)
[2017-02-02] MEDS: BENADRYL IV SCH (20:03)
[2017-02-02] MEDS ORDERED: SODIUM CHLORIDE 0.9% INJ ONE (20:03)
--- NOTE | 2017-02-02 20:14 | Diag Imaging Result Doc PS360 ---
CHEST/ABD TUBE PLACEMENT - 02/02/2017 1940 INDICATION: OG Tube Placement TECHNIQUE: COMPARISON: 1628 FINDINGS: There is a new endotracheal tube at T3. There is a nasogastric tube with the tip in the stomach. There is worsening bibasilar infiltrate/atelectasis. There is cardiomegaly and pulmonary vascular congestion. IMPRESSION: No complications. Electronically signed by Alfred Gallardo 02/02/2017 8:11 PM
[2017-02-02] MEDS: PEPCID IV SCH (20:21)
[2017-02-02 20:22] LABS: URINE MICRO REVIEW NEEDED? NO; URINE SOURCE CLEAN CATCH
[2017-02-02] MEDS: SOLU-MEDROL IV SCH (20:22)
[2017-02-02 20:28] LABS: BILIRUBIN URINE NEGATIVE (NEGATIVE); BLOOD URINE TRACE (NEGATIVE); COLOR YELLOW; GLUCOSE URINE NEGATIVE (NEGATIVE); LEUKOCYTES URINE NEGATIVE (NEGATIVE); NITRITE URINE NEGATIVE (NEGATIVE); PH URINE 5.5; PROTEIN URINE 50 mg/dL (NEGATIVE); SP GRAVITY URINE 1.016; TURBIDITY URINE HAZY (CLEAR); UR EPITHELIAL CELLS <10 /HPF (<10); URINE BACTERIA 4+ /HPF; URINE CULTURE NEEDED? YES; URINE RBC <10 /HPF (<10); URINE WBC <10 /HPF (<10); UROBILINOGEN URINE NORMAL (NORMAL)
[2017-02-02 20:51] LABS: BE -10.4 mmoll (-3.0-3.0); BLOOD TYPE ARTERIAL; METHB 1.1 % (0.0-1.5); O2(CT) 11.2 mL/dL (15.0-23.0); PCO2(98.6) 34 mmHg (35-45); PO2(98.6) 213 mmHg (60-100); SAMPLE BLOOD; SAO2 97.6 % (95.0-100.0); SRATE 14 BPM; THB 7.9 g/dL (11.5-17.4); TVOL 500 mL; pH(98.6) 7.27 (7.35-7.45)
[2017-02-02 20:53] LABS: MODALITY VENTILATOR
[2017-02-02] MEDS: LEVOPHED 8 MG in D5 1/2 NS 250 ML IV SCH ×2 (20:54→21:03)
[2017-02-02] MEDS: DUONEB (A & A) INH SCH (23:29)
[2017-02-02] MEDS: ZOSYN 3.375 GM in NS 50 ML IV SCH (23:47)
[2017-02-03] MEDS: BENADRYL IV SCH ×4 (02:33→20:51)
[2017-02-03] MEDS: SOLU-MEDROL IV SCH ×3 (03:14→20:51)
[2017-02-03] MEDS: DUONEB (A & A) INH SCH (03:26)
[2017-02-03 04:40] LABS: ALLEN TEST YES; BE -14.7 mmoll (-3.0-3.0); BLOOD TYPE ARTERIAL; DRAW SITE R RADIAL; PCO2(98.6) 27 mmHg (35-45); PO2(98.6) 236 mmHg (60-100); SAMPLE BLOOD; SRATE 14 BPM; TVOL 500 mL; pH(98.6) 7.23 (7.35-7.45)
[2017-02-03 04:41] LABS: MODALITY VENTILATOR
[2017-02-03] MEDS: ZOSYN 3.375 GM in NS 50 ML IV SCH ×3 (05:01→17:40)
[2017-02-03] MEDS ORDERED: NS 1,000 ML IV SCH ×2 (05:15→07:05)
[2017-02-03] MEDS: DIPRIVAN 1% 1,000 MG/100 ML BOTTLE IV SCH ×2 (06:23→14:53)
[2017-02-03 06:26] LABS: HEMATOCRIT 28.1 % (37.0-47.0); HEMOGLOBIN 8.9 g/dL (12.0-16.0); MCH 35.2 PG (27-31); MCHC 31.7 g/dL (33-37); MCV 111.1 FL (81-99); MPV 10.9 FL (7.4-10.4); RBC 2.53 XMIL (4.2-5.4)
[2017-02-03] MEDS ORDERED: VANCOMYCIN IV PER PHARMACY MISC SCH (06:30)
[2017-02-03 06:56] LABS: POTASSIUM 4.3 mmol/L (3.5-5.1)
[2017-02-03] MEDS ORDERED: LASIX IV ONE (07:04)
[2017-02-03 07:11] LABS: CALCIUM 6.8 mg/dL (8.8-10.2)
--- NOTE | 2017-02-03 08:26 | Diag Imaging Result Doc PS360 ---
CHEST-PORTABLE - 02/03/2017 INDICATION: airway obstruction TECHNIQUE: COMPARISON: 02/02/2017 FINDINGS: Stable endotracheal tube and nasogastric tube in good position. Stable patchy bibasilar infiltrates or atelectasis. No new infiltrates. Heart size remains borderline enlarged. IMPRESSION: No change from prior. Electronically signed by Alfred Gallardo 02/03/2017 8:24 AM
[2017-02-03] MEDS: PEPCID IV SCH ×2 (08:44→20:51)
[2017-02-03] MEDS ORDERED: NS IV SCH (10:00)
[2017-02-03] MEDS ORDERED: CUBICIN IV SCH (10:00)
[2017-02-03] MEDS ORDERED: NS 1,000 ML IV ONE ×2 (11:15→11:16)
--- NOTE | 2017-02-03 11:44 | PROGRESS NOTE ---
DATE: 02/03/2017 SUBJECTIVE: This patient is on mechanical ventilation and sedated. We intubated this patient yesterday to protect her airway since she came in with neck edema and respiratory distress. Today I have a positive blood culture 2/2 that showed gram-positive cocci. So this patient is bacteremic and septic. She has been on pressors because her blood pressure has been really low. I have started this patient on daptomycin, vancomycin has been stopped because of her kidney injury. Urine output decreased severely, so I will ask Nephrology Department to evaluate this patient. OBJECTIVE: Vital Signs: Temperature 99.8 degrees, pulse 102, respiratory rate 19, blood pressure 84/53, oxygen saturation 100% on 60% FiO2. HEENT: Head normocephalic. No trauma. PERRLA. Neck: Looks edematous, mostly on the right side. Her neck is warm to touch. Significant swelling. Chest: Decreased breath sounds mostly at the bases with coarse breath sounds. Cardiovascular: RRR. No murmurs. Tachycardic. Abdomen: Soft, nontender, nondistended. No hepatosplenomegaly. Extremities: No edema. No clubbing. No cyanosis. Neurological examination: The patient is sedated and intubated. LABORATORY: WBC 3.3, hemoglobin 8.9, hematocrit 28.1, platelets 167. Sodium 144, potassium 4.3, chloride 110, bicarbonate 10. BUN 47, creatinine 2.3, glucose 75, calcium 6.8, lactate 4.2. ASSESSMENT AND PLAN: 1. Septic shock. This patient has a positive blood culture 2/2 that showed gram-positive cocci. I have placed this patient on daptomycin. Vancomycin has been stopped because of her kidney function. I will keep this patient on pressors. I have added epinephrine. She was already on norepinephrine. Her blood pressure has been low. 2. Neck swelling. I am not quite sure about the swelling. Probably this is related to an abscess. ENT on board. We will continue to monitor. 3. An anion gap metabolic acidosis. This is likely secondary to her severe sepsis and acute kidney injury. 4. Hypocalcemia. I will replace the calcium today. 5. Microcytic anemia. Continue with the same treatment. 6. Acute on chronic kidney disease. I do believe this is secondary to her septic shock. Nephrology Department has been consulted. 7. Deep vein thrombosis prophylaxis. I will continue with sequential compression devices and thromboembolic device hose. I am not quite sure if this patient will need surgery at any point. CRITICAL CARE TIME: 45 minutes. cc: Lew Gonzalez MD
[2017-02-03] MEDS ORDERED: CALCIUM GLUCONATE 4.65 MEQ in NS 50 ML IV ONE (12:00)
[2017-02-03] MEDS: LEVOPHED 8 MG in D5 1/2 NS 250 ML IV SCH ×3 (12:05→22:33)
--- NOTE | 2017-02-03 12:18 | CONSULTATION ---
DATE OF CONSULTATION: 02/03/2017 REASON FOR CONSULTATION: Acute kidney injury. HISTORY OF PRESENT ILLNESS: Ms. Wayne is a 77-year-old white female who has been living at home alone and in the [place] area. She has some cognitive impairment, but she has been able to perform all of her normal activities of daily living. However, her son brings her food every day. She has known multiple myeloma and has been receiving treatment from Dr. Vaughan for 2 years. In that context, she developed anemia that required a transfusion, and came to [facility] to have that transfusion about 2 weeks ago. 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 She has been there for 2 weeks, and on , she went to Dr. Vaughan's office to receive treatment for her myeloma. The family states that this was the first episode of a new treatment regimen because she was apparently failing her previous treatment. She does not have a Port-A-Cath or any other venous access and they describe her treatment as being given in the abdomen. Thereafter, she became progressively more ill with hypoxemia, difficulty with breathing, altered sensorium, etc. She was brought into the hospital where her initial evaluation disclosed a blood pressure 104/49, and room air saturation of 95%. She was acutely ill and underwent a broad evaluation, including CT of the neck, chest and head. She had swelling and redness of the right neck. None of these studies disclosed a discrete source of infection or purulence. She did have swelling of the soft tissue in the right neck, but no abscess. She was admitted to the intensive care unit and treated with empiric broad-spectrum antibiotics after cultures were obtained. Her course progressed in manner typical of sepsis syndrome, with hypotension requiring vasopressor support as well as ventilator support. In this context, her urine output has decreased markedly, and she has rise in BUN and creatinine. On this basis, we are asked to consult and assist with her management. PAST MEDICAL HISTORY: As above. She also has a history of hypertension, hyperlipidemia and chronic anemia, history of chronic prescription drug abuse according to the family. HOME MEDICATIONS: Include: 1. Metoprolol. 2. Fentanyl. 3. Ondansetron. 4. Hydrocodone. 5. Duloxetine. 6. Dronabinol. 7. Trazodone. 8. Ergocalciferol. 9. Melatonin. SOCIAL HISTORY: As above. FAMILY HISTORY: Strong for Alzheimer's disease. REVIEW OF SYSTEMS: Otherwise negative and is obtained from the family. PHYSICAL EXAMINATION: Vital Signs: Blood pressure 98/49, heart rate 96, respirations 34, afebrile. Generally: She is in no acute distress, sedated. Skin: Warm and dry. Toes are dusky. Pupils are equal and constricted. Conjunctivae are pink. Oropharynx not examined. Neck: Supple. Trachea is midline. Neck veins are not distended. Heart: Regular but tachycardic with no gallops or murmurs. Lungs: Have equal breath sounds. No crackles, wheezes, accessory muscle use, or retractions. Abdomen: Soft, nontender. Diminished bowel sounds. No organomegaly, masses or bruits. Extremities: Have no edema, clubbing, or cyanosis. LABORATORY DATA: Reviewed. IMPRESSION: 1. Acute kidney injury. Presumably acute tubular necrosis secondary to sepsis. Urine cultures negative thus far. I will order urine studies and renal ultrasound. I will review her resuscitation plan with the staff. She may need to receive normal saline boluses. She does not have any acute indications for dialysis. I have reviewed the rationale for treatment with the patient's family, including her sister and her son. I counseled them that likely she will require renal replacement therapy on Sunday if there is no change in her status. Obviously, we will continually reassess her needs and if treatment is required prior to that then we will implement. The family has personal experience with dialysis, so they understand access needs, and understand the stress related to dialysis and how that may affect their decision-making. 2. Acid-base: Anion gap has increased over the last 24 hours from 15-24. She still has positive plasma lactate. We will check her acetone. No other testing. Thank you for the consult. cc: Be Santos MD
--- NOTE | 2017-02-03 12:19 | CONSULTATION ---
DATE OF CONSULTATION: 02/03/2017 REQUESTING PHYSICIAN: Lew Gonzalez MD REASON FOR CONSULTATION: Respiratory failure. HISTORY OF PRESENT ILLNESS: Ms. Wayne is a 77-year-old white female, nonsmoker, with dementia, who is currently being treated for multiple myeloma. The patient presented to the emergency room with swelling in her neck along with increased work of breathing. The patient was evaluated by the ear, nose, and throat physician who identified epiglottic and supraglottic edema with an exudate present. The patient required intubation and mechanical ventilation. She has been initiated on vasopressors for hypotension. Two blood cultures are positive for gram-positive cocci. Pulmonary consultation was requested. PAST MEDICAL HISTORY/PROBLEM LIST: 1. Dementia with paranoia. Patient currently being evaluated at [facility]. 2. Multiple myeloma. On treatment by Dr. Mcarthur. 3. Status post craniotomy for brain tumor removal and vascular ligation in 1990. 4. Hypertension. 5. Dyslipidemia. 6. Status post right shoulder replacement. 7. Status post hysterectomy. 8. Status post open reduction internal fixation of the right leg. SOCIAL HISTORY: No alcohol use. No tobacco use. The patient has a history of benzodiazepine abuse. FAMILY HISTORY: The patient has a twin sister who is in good health. Family history also positive for multiple myeloma by sister's report. REVIEW OF SYSTEMS: Cannot be obtained. PHYSICAL EXAMINATION: General: Physical exam reveals a chronically ill-appearing white female on mechanical ventilation. Vital signs: Blood pressure 84/53. Heart rate 102. Temperature 99.8. Oxygen saturation 100% on 60% FiO2. HEENT: Pupils are equal but sluggish. Oropharynx evaluation is limited with endotracheal tube in place. Neck: Reveals fullness to the right of the trachea without erythema. Chest: Reveals good air entry bilaterally without wheezing or rhonchi. Cardiac: Regular rate. Normal S1 and S2. Abdomen: Soft without hepatosplenomegaly. Extremities: Cold to the touch. LABORATORY DATA: White blood count 3.3, hemoglobin 8.9, platelet count 167,000. Arterial blood gas with pH 7.23, pCO2 of 27, pO2 of 236. Chemistries: Sodium 144, potassium 4.3, chloride 110, bicarbonate 10, anion gap 24, BUN 47, creatinine 2.3. Chest x-ray reveals endotracheal tube in good position with bibasilar infiltrates. IMPRESSION: A 77 year old with gram-positive bacteremia and severe sepsis with septic shock, acute hypoxic respiratory failure, bone marrow dysfunction with multiple myeloma and leukopenia, acute renal failure, dementia with paranoia. RECOMMENDATIONS: 1. Continue full ventilatory support for hypoxemic respiratory failure. 2. Agree with volume resuscitation as has been initiated by Dr. Santos from the Nephrology Service. 3. Broad-spectrum antibiotics. 4. Infectious Disease has been consulted. 5. Routine gastric acid suppression. 6. Check IgG levels to see whether she needs immunoglobulin. 7. Additional recommendations pending hospital course. cc: Andrea Ford MD
--- NOTE | 2017-02-03 13:30 | Diag Imaging Result Doc PS360 ---
US RENAL 2 (RETROPER) COMPLETE - 02/03/2017 INDICATION: decreased renal function TECHNIQUE: COMPARISON: None FINDINGS: The kidneys are hyperechoic. There is mild right hydronephrosis. No left-sided hydronephrosis. There is a right renal cyst at the lower pole measuring 3.5 cm. Renal sizes are normal. The right kidney measures 12 x 5.3 x 6.5 cm. The left kidney measures 10.4 x 4.9 x 5.8 cm. Urinary bladder is normal. IMPRESSION: 1. Mild right hydronephrosis, reason is unclear. 2. Significant chronic medical renal disease. 3. Benign right renal cyst. Electronically signed by Alfred Gallardo 02/03/2017 1:28 PM
[2017-02-03] MEDS: SODIUM ACETATE 150 MEQ in D5W 1,000 ML IV SCH ×2 (16:02→16:03)
[2017-02-03] MEDS ORDERED: NS 500 ML ONE (16:45)
[2017-02-03] MEDS ORDERED: EPINEPHRINE 4 MG in NS 250 ML IV SCH (17:30)
[2017-02-04] MEDS: ZOSYN 3.375 GM in NS 50 ML IV SCH ×2 (00:03→05:48)
[2017-02-04] MEDS: BENADRYL IV SCH ×4 (01:50→20:03)
[2017-02-04] MEDS: DIPRIVAN 1% 1,000 MG/100 ML BOTTLE IV SCH ×3 (01:50→23:31)
[2017-02-04] MEDS ORDERED: SODIUM BICARBONATE 8.4% IV PUSH ONE (02:48)
[2017-02-04] MEDS: TYLENOL PR PRN ×2 (02:51→13:52)
[2017-02-04 03:00] LABS: ALLEN TEST YES; BE -24.3 mmoll (-3.0-3.0); BLOOD TYPE ARTERIAL; DRAW SITE R RADIAL; METHB 0.8 % (0.0-1.5); O2(CT) 13.8 mL/dL (15.0-23.0); PCO2(98.6) 26 mmHg (35-45); PO2(98.6) 130 mmHg (60-100); SAMPLE BLOOD; SAO2 98.8 % (95.0-100.0); SRATE 14 BPM; THB 9.9 g/dL (11.5-17.4); TVOL 500 mL
[2017-02-04] MEDS ORDERED: NEO-SYNEPHRINE 50 MG in NS 250 ML IV SCH (03:00)
[2017-02-04] MEDS ORDERED: NS NEB INH SCH (03:00)
[2017-02-04 03:02] LABS: pH(98.6) 6.97 (7.35-7.45)
[2017-02-04 03:03] LABS: MODALITY VENTILATOR
[2017-02-04] MEDS: LEVOPHED 8 MG in D5 1/2 NS 250 ML IV SCH ×4 (03:14→20:04)
[2017-02-04] MEDS ORDERED: SODIUM BICARBONATE 8.4% 100 MEQ in D5W 1,000 ML IV SCH (03:20)
[2017-02-04 03:23] LABS: HEMATOCRIT 32.4 % (37.0-47.0); HEMOGLOBIN 9.7 g/dL (12.0-16.0); MCH 33.9 PG (27-31); MCHC 29.9 g/dL (33-37); MCV 113.3 FL (81-99); MPV 10.5 FL (7.4-10.4); RBC 2.86 XMIL (4.2-5.4)
[2017-02-04 03:26] LABS: ALBUMIN 2.3 g/dL (3.5-5.0); CALCIUM 6.7 mg/dL (8.8-10.2); POTASSIUM 5.7 mmol/L (3.5-5.1); TOTAL BILIRUBIN 3.44 mg/dL (0.20-1.00); TOTAL PROTEIN 7.5 g/dL (6.3-8.3)
[2017-02-04] MEDS ORDERED: D50W SYRINGE IV ONE ×2 (03:36→06:51)
[2017-02-04] MEDS: SOLU-MEDROL IV SCH ×3 (03:44→20:03)
[2017-02-04] MEDS: SODIUM ACETATE 150 MEQ in D5W 1,000 ML IV SCH ×6 (03:50→22:12)
[2017-02-04] MEDS ORDERED: CALCIUM GLUCONATE 1 GM in NS 50 ML IV ONE (04:03)
[2017-02-04] MEDS ORDERED: TYLENOL PR ONE (04:08)
[2017-02-04] MEDS: XOPENEX NEB INH SCH ×4 (04:55→21:19)
[2017-02-04 06:49] LABS: ALLEN TEST YES; BLOOD TYPE ARTERIAL; DRAW SITE R RADIAL; METHB 0.8 % (0.0-1.5); O2(CT) 14.1 mL/dL (15.0-23.0); PCO2(98.6) 32 mmHg (35-45); PO2(98.6) 178 mmHg (60-100); SAMPLE BLOOD; SAO2 98.5 % (95.0-100.0); SRATE 14 BPM; TVOL 500 mL
[2017-02-04 06:51] LABS: MODALITY VENTILATOR; pH(98.6) 7.03 (7.35-7.45)
[2017-02-04] MEDS ORDERED: NS 1,000 ML IV ONE (07:18)
[2017-02-04] MEDS: PEPCID IV SCH ×2 (07:56→20:04)
[2017-02-04] MEDS ORDERED: VELTASSA PO ONE (08:15)
--- NOTE | 2017-02-04 08:58 | Diag Imaging Result Doc PS360 ---
CHEST-PORTABLE - 02/04/2017 INDICATION: respiratory failure TECHNIQUE: COMPARISON: 02/03/2017 FINDINGS: Stable endotracheal tube and nasogastric tube in good position. There is an esophageal temperature sensor now. There is also a right PICC line in good position with the catheter tip at the caval atrial junction. Lung volumes are slightly improved. Otherwise, stable cardiomegaly and significant pulmonary vascular congestion. Stable bilateral basilar airspace infiltrates or atelectasis, left greater than right. IMPRESSION: No complication. Electronically signed by Alfred Gallardo 02/04/2017 8:56 AM
[2017-02-04] MEDS ORDERED: CALCIUM GLUCONATE 4.65 MEQ in NS 50 ML IV ONE (09:00)
--- NOTE | 2017-02-04 10:04 | PROGRESS NOTE ---
DATE: 02/04/2017 SUBJECTIVE: This patient is still on mechanical ventilation. She is not sedated at this time and she is not waking up. She just grimaces with pain stimulation. Overall, this patient is getting worse. I talked to the family and her son who has the power of transactional attorney about her condition and prognosis. They want 24 hours more to see if she changes her condition but we put this patient DNR level 2. For now, no chest compression or cardioversion for this patient. OBJECTIVE: Vital Signs: Temperature 95.2 degrees, pulse 87, respiratory rate 15, blood pressure 117/55, oxygen saturation 100% on mechanical ventilation, 40% FiO2. HEENT: Head normocephalic. No trauma. PERRLA. Neck: Looks erythematosus, mostly on the right side. Her neck is warm to touch. Significant swelling. Chest: Decreased breath sounds, mostly at the bases with coarse breath sounds. Cardiovascular: RRR. No murmurs. Abdomen: Soft, nontender, nondistended. No hepatosplenomegaly. Extremities: No edema. No clubbing. No cyanosis. Neurological Examination: This patient is on mechanical ventilation. She is not sedated. She grimaces with pain stimulation. She is not following commands. Laboratory: WBC 13.3, hemoglobin 9.7, hematocrit 32.4, platelets 177,000. Sodium 139, potassium 5.7, chloride 106, bicarbonate 6, BUN 54, creatinine 3.6, glucose 45, calcium 6.7, phosphorus 7.1. AST 138, ALT 42, alkaline phosphatase 26, albumin 2.3, lactate is 9.4. PH of 6.97, PCO2 of 26, bicarb 6. ASSESSMENT AND PLAN: 1. Septic shock. We have a positive culture that showed Streptococcus pneumoniae from the blood. Infectious disease department has been consulted. For now, we will continue with the same management. 2. Neck swelling. I am not sure about the swelling. Probably, this is related to an abscess. ENT on board. We will continue to monitor. 3. Severe anion gap metabolic acidosis, likely secondary to sepsis and acute kidney injury. 4. Hypocalcemia. I will replace the calcium today. 5. Hyperkalemia. I will use Veltassa x1. Likely secondary to kidney dysfunction. 6. Microcytic anemia. Continue with the same treatment. 7. Acute on chronic kidney disease, likely prerenal secondary to her septic shock. Nephrology department on board. 8. Deep vein thrombosis prophylaxis. Continue with sequential compression devices and TEDs. 9. Elevated liver function tests. This patient has multiorgan failure. We will monitor. Overall, this patient is getting worse, really poor prognosis. I discussed the case with the family and with the son who has the power of transactional attorney. For now, but this patient will be do-not- resuscitate level 2. No chest compression or cardioversion. For now, only pressors and mechanical ventilation. They decided to wait 24 hours to see if her condition changes. Tomorrow, if her condition is worse, probably they will withdraw care. CRITICAL CARE TIME: Fifty minutes, 20 minutes evaluating this patient and 30 minutes talking to the family. cc: Lew Gonzalez MD
[2017-02-04 10:09] LABS: URINE SOURCE CATH
[2017-02-04 10:17] LABS: BILIRUBIN URINE MODERATE (NEGATIVE); BLOOD URINE LARGE (NEGATIVE); CLARITY SLIGHTLY CLOUDY (CLEAR); COLOR YELLOW; GLUCOSE URINE NEGATIVE (NEGATIVE); LEUKOCYTES URINE NEGATIVE (NEGATIVE); NITRITE URINE NEGATIVE (NEGATIVE); PROTEIN URINE >=300 mg/dL (NEGATIVE); SP GRAVITY URINE 1.025; UROBILINOGEN URINE 0.2 EU/dL (0.2-1.0)
[2017-02-04 10:28] LABS: URINE CAST NONE SEEN /LPF; URINE CRYSTAL NONE SEEN /HPF; URINE EPITHELIAL CELLS <10 /HPF (<10); URINE RBC TNTC /HPF (<10); URINE WBC <10 /HPF (<10)
[2017-02-04 10:55] LABS: UR CREAT RANDOM 70.5 mg/dL (11-20)
[2017-02-04 10:56] LABS: UR PROT RANDOM 471.9 mg/dL
[2017-02-04] MEDS ORDERED: ZOSYN 2.25 GM in NS 50 ML IV SCH (14:00)
[2017-02-04] MEDS ORDERED: FLEBOGAMMA DIF 5% IV ONE (17:00)
[2017-02-04] MEDS ORDERED: FLEBOGAMMA DIF 5% 20 GM in DILUENT 400 ML IV ONE (18:00)
[2017-02-04] MEDS ORDERED: MAXIPIME 1 GM/NS 1 GM/50 ML IVPB IV SCH (18:00)
[2017-02-04] MEDS ORDERED: VANCOMYCIN 1 GM/NS 1 GM/250 ML IVPB IV SCH (18:00)
--- NOTE | 2017-02-04 18:21 | CONSULTATION ---
DATE OF CONSULTATION: 02/04/2017 CONCLUSION: The patient has pneumococcal bacteremia and pneumonia. She also has a gram-negative sara urinary tract infection. She is at high risk of having an immunoglobulin deficiency because of multiple myeloma and also because of having a severe pneumococcal infection. RECOMMENDATIONS: I have changed the patient's antibiotic to cefepime and have discontinued daptomycin and Zosyn. I have ordered a dose of immunoglobulin to be given. Immunoglobulin levels were according to the labs drawn here and sent to [facility], although when I called [facility] they said they did not have the specimen. Therefore, were going to go a head and draw it now and then as soon as it is drawn give the dose of immunoglobulin. DISCUSSION: The patient is unable provide a history. The history was taken from the patient's daughter. The daughter has noted that the patient's neck was swollen for the past 2 days. She was initially at [facility] and then transferred to the intensive care unit at [facility]. The patient's blood cultures are growing pneumococcus. The chest x-ray shows pulmonary edema with bibasilar infiltrates and/or atelectasis. The patient is intubated and sedated. She was found to have a swollen neck and an ENT physician saw the patient but there is no report of that in the chart. The daughter said that the physician told her that there was infection in her throat and which was causing her swollen neck. LABORATORY STUDIES: Thus far, CBC shows a white count of 13,340, hemoglobin 9.7, and platelet count 177,000. Blood gases show a pH of 6.97, PO2 of 130, and a pCO2 of 26. Creatinine is 3.6. GFR is 12. The AST is 138. Bilirubin is 3.44. Urinalysis showed bacteria but no white cells. The culture, as mentioned above, is growing a gram-negative sara. REVIEW OF SYSTEMS: Unable to be obtained from the patient. INFORMATION SECURITY ARCHITECT HISTORY: She is a 3, para 2, AB1. She has had a hysterectomy. PREVIOUS HOSPITALIZATIONS AND OPERATIONS: She was recently at [facility]. She has been admitted other times for overdose of medication. MEDICAL DISEASES: Positive for Alzheimer disease, dementia, multiple myeloma, and hypertension. INFECTIOUS DISEASE HISTORY: Positive for UTI. FAMILY HISTORY: Positive for hypertension, cancer, and Alzheimer disease. SOCIAL HISTORY: [place] She is a . She lives alone. ALLERGIES: Her chart the lists no known drug allergies. MEDICATIONS: Taken at home include the following. Desyrel, Marinol, ondansetron, metoprolol, melatonin, hydrocodone, fentanyl, ergocalciferol, and Cymbalta. PHYSICAL EXAMINATION: Vital Signs: Temperature is 100.7 degrees, pulse 100, respirations 20, blood pressure is 126/54. General: This is an ill-appearing, elderly female. She is intubated. Ears, nose, and throat: No drainage noted from the nose or ears. The patient is intubated as mentioned above. Neck: It is swollen and the tissue his firm. It is not hard and it is not soft or fluctuant. There is no erythema. There was no meningismus. Lungs: Clear to auscultation. Cardiovascular: Heart rate was regular. Abdomen: Soft and nontender. Neurologic: Patient is obtunded she did not respond to verbal stimuli. There was no tremor. Integument: No rash noted. Thank you for the consult. cc: Tyson Vazquez MD
[2017-02-04] MEDS: ROCEPHIN 2 GM in NS 50 ML IV SCH (18:28)
[2017-02-05] MEDS: BENADRYL IV SCH ×4 (01:31→19:45)
[2017-02-05] MEDS ORDERED: D50W SYRINGE ONE (01:42)
[2017-02-05] MEDS ORDERED: D50W SYRINGE IV ONE (01:52)
[2017-02-05] MEDS: LEVOPHED 8 MG in D5 1/2 NS 250 ML IV SCH ×2 (03:11→19:46)
[2017-02-05] MEDS: SOLU-MEDROL IV SCH ×3 (03:11→19:45)
[2017-02-05] MEDS: XOPENEX NEB INH SCH ×4 (03:22→21:30)
[2017-02-05 05:00] LABS: ALLEN TEST YES; BE -16.3 mmoll (-3.0-3.0); BLOOD TYPE ARTERIAL; DRAW SITE R RADIAL; METHB 0.1 % (0.0-1.5); O2(CT) 16.1 mL/dL (15.0-23.0); PCO2(98.6) 25 mmHg (35-45); PO2(98.6) 147 mmHg (60-100); SAMPLE BLOOD; SAO2 98.6 % (95.0-100.0); SRATE 20 BPM; THB 11.5 g/dL (11.5-17.4); TVOL 600 mL; pH(98.6) 7.21 (7.35-7.45)
[2017-02-05 05:02] LABS: MODALITY VENTILATOR
[2017-02-05] MEDS: ROCEPHIN 2 GM in NS 50 ML IV SCH ×2 (05:13→18:01)
[2017-02-05 06:03] LABS: HEMATOCRIT 27.8 % (37.0-47.0); MCHC 32.4 g/dL (33-37); MCV 108.2 FL (81-99); MPV 10.9 FL (7.4-10.4); RBC 2.57 XMIL (4.2-5.4)
--- NOTE | 2017-02-05 06:34 | EKG Report ---
Test Performed on : 02/04/2017 02:15:26 AM Test Reason : ? RJYTHM Blood Pressure : / mmHG Vent. Rate : 088 BPM Atrial Rate : 034 BPM P-R Int : 000 ms QRS Dur : 100 ms QT Int : 392 ms P-R-T Axes : 000 -26 -45 degrees QTc Int : 474 ms Atrial fibrillation. with a competing junctional pacemaker. with premature ventricular or aberrantly conducted complexes. Low voltage QRS Incomplete right bundle branch block ST \T\ T wave abnormality, consider anterior ischemia Prolonged QT Abnormal ECG When compared with ECG of 02-FEB-2017 15:39, (Unconfirmed) premature ventricular complexes. is now present ST now depressed in early precordial leads V1-V2 Flat T waves now evident in lateral precordial leads V4-V5-V6 Confirmed by Ramon Castillo DO ([id number]) on 02/06/2017 5:53:36 PM
[2017-02-05 07:12] LABS: ALBUMIN 1.3 g/dL (3.5-5.0); CALCIUM 6.2 mg/dL (8.8-10.2); MAGNESIUM 1.4 mg/dL (1.5-2.7); POTASSIUM 4.6 mmol/L (3.5-5.1); TOTAL BILIRUBIN 3.69 mg/dL (0.20-1.00); TOTAL PROTEIN 6.9 g/dL (6.3-8.3)
[2017-02-05] MEDS: PEPCID IV SCH ×2 (07:25→19:45)
--- NOTE | 2017-02-05 07:38 | Diag Imaging Result Doc PS360 ---
EXAM: CHEST-PORTABLE INDICATION: respiratory failure TECHNIQUE: One view COMPARISON: 02/04/2017 FINDINGS: Support tubes and lines are in stable positions. Pulmonary venous congestion and mild patchy infiltrates versus atelectasis are stable bilaterally. No new consolidation is appreciated. Cardiac silhouette is stable. IMPRESSION: Stable chest. Electronically signed by Weston Davila 02/05/2017 7:36 AM
[2017-02-05] MEDS ORDERED: MAGNESIUM SULFATE 2 GM/S.W.I. 2 GM/50 ML IVPB IV ONE (08:27)
[2017-02-05] MEDS ORDERED: CALCIUM GLUCONATE 4.65 MEQ in NS 50 ML IV ONE (09:30)
[2017-02-05] MEDS: D50W SYRINGE IV PRN ×3 (10:38→19:54)
--- NOTE | 2017-02-05 11:10 | PROGRESS NOTE ---
DATE: 02/05/2017 SUBJECTIVE: This patient is still on mechanical ventilation. I do believe that this patient is getting worse. I talked to the family again about her condition and prognosis. They seem to understand but they want to continue her current treatment. For now, she will continue being DNR level 2. No chest compression or cardioversion for this patient. OBJECTIVE: Vital Signs: Temperature 98.7 degrees, pulse 99, respiratory rate 20, blood pressure 120/60. Oxygen saturation 100% on 40% FiO2. HEENT: Head normocephalic. No trauma. PERRLA. Neck: Swelling, mostly in the anterior part left and right. Warm to touch. Chest: Decreased breath sounds, mostly at the bases with coarse breath sounds. Cardiovascular: RRR. No murmurs. Abdomen: Soft, nontender, nondistended. No hepatosplenomegaly. Extremities: No edema. No clubbing. No cyanosis. Neurological Examination: This patient is on mechanical ventilation. Laboratory: WBC 6.9, hemoglobin 9, hematocrit 27.8, platelets 47,000. PH 7.2, PCO2 of 25, lactate 11.9. Sodium 136, potassium 4.6, chloride 96, bicarbonate 10, BUN 63, creatinine 4.1, calcium 6.2, glucose 78. AST 675, ALT 462, magnesium 1.4, albumin 1.3. ASSESSMENT AND PLAN: 1. Septic shock. We have a positive blood culture that showed streptococcus pneumonia and urine culture that showed E. coli. This patient is on antibiotics. Infectious disease department is following this patient. 2. Neck swelling. I am not sure about the swelling. Probably this is related to an abscess. ENT on board. We will continue with the same management for now. 3. Anion gap metabolic acidosis secondary to sepsis and acute kidney injury. 4. Hypocalcemia. We will replace the calcium. 5. Hypomagnesemia. I will replace the magnesium. 6. Microcystic anemia. Continue with the same management. 7. Thrombocytopenia. This is new. She is not getting heparin. For now, we will do sequential compression devices. 8. Acute on chronic kidney disease. This is getting worse. Nephrology department on board. Urine output is low, around 215 in the past 24 hours. 9. Elevated liver function tests, probably secondary to multiorgan failure. This is getting worse as well. 10. Deep vein thrombosis prophylaxis with sequential compression devices and TEDs. CRITICAL CARE TIME: 45 minutes. cc: Lew Gonzalez MD
[2017-02-05] MEDS: SODIUM ACETATE 150 MEQ in D5W 1,000 ML IV SCH (11:49)
[2017-02-05 13:37] LABS: DRAW SITE R RADIAL
[2017-02-05 13:38] LABS: ALLEN TEST YES
--- NOTE | 2017-02-05 15:02 | PROGRESS NOTE ---
DATE: 02/05/2017 SUBJECTIVE: Patient remains mechanically ventilated. Does not appear to be on sedation and is not responsive. OBJECTIVE: Vital signs: Temperature 98.7 degrees, pulse 108, respiratory rate 20, blood pressure 120/60. Intake 5.6 L, output 215 mL. Of this 15 mL was urine. General: This is a elderly female resting on the vent, she is critically ill-appearing. HEENT: Normocephalic, atraumatic. She is orally intubated. Neck: Supple. Trachea midline. Cardiovascular: Regular rate and rhythm. No murmur or gallop. Pulmonary: She has decreased breath sounds. Coarse rhonchi bilaterally. No wheeze. Remains mechanically ventilated. Abdomen: Is soft with hypoactive bowel sounds. : Not inspected. She has a Mares catheter with a few drops of urine. Extremities: No clubbing, cyanosis. She has trace pretibial edema. She has some dependent edema as well to the backs of the thighs and hips. Integumentary:: Skin is warm and dry. LAB DATA: WBC of 6.9, hemoglobin 9.7, platelet count of 47,000, sodium 136, potassium 4.6, CO2 10, BUN 63, creatinine 4.1. ASSESSMENT AND PLAN: 1. Acute kidney injury without recovery. The patient's renal function has declined precipitously over the weekend now with a creatinine 4.1. Her urine output is essentially nil. We did discuss with the family dialysis. The patient is critically ill with septic shock from Streptococcus pneumonia. Even with dialysis her prognosis is poor. I discussed HD with the son and daughter. The daughter feels that she would want any treatment options available to her. THey will discuss together and let me know. US is abnormal. Will obtain CT. rg 2. Antibiotics followed by primary and infectious disease. She has thrombocytopenia and Zosyn has been changed by infectious disease. 3. Acid base balance. We will treat on dialysis. 4. Multiple myeloma followed by primary. The patient has seen Dr. Vaughan in the past. Dictated by LAVERNE Gauthier for Be Santos MD Patient seen, data reviewed, discussed with Mookie Ingram on 02/05/17. I agree with the above assessment and plan of care rg cc: Be Santos MD [facility]
--- NOTE | 2017-02-05 17:42 | Diag Imaging Result Doc PS360 ---
EXAM: CT ABDOMEN/PELVIS W/O CONTRAST HISTORY: ABRAHAM, sepsis, bacteremia, 'mild right hydro' TECHNIQUE: CT urogram without contrast COMMENT: There is anasarca, bilateral pleural effusions and basilar atelectasis, ascites, and an NG tube with its tip in the stomach. Multiple old rib fractures are present bilaterally. There is generalized osteopenia there is an apparent stent in the left renal artery. There is a small 2 mm sized stone in the lower pole of the left kidney. There is no evidence of hydronephrosis. There is apparent sludge in the gallbladder. There is diverticulosis coli. There is a Mares catheter in the bladder. There are postsurgical changes present in the lower thoracic and upper lumbar spine, scoliosis with convexity to the right in the lumbar spine, sclerosis in the sacral sanjiv possibly due to previous insufficiency fracture. There is a collection of air bubbles present around image 93 in the upper pelvis which may or may not be within a bowel loop. There is also a suggestion of mucosal fold thickening within the ascending colon and possibly in the descending colon as well. There are no previous abdominal studies. The pleural fluid collections and basilar atelectasis were not present on the previous thoracic examination of 02/02/2017. IMPRESSION: Anasarca, ascites, and pleural effusions. Questionable colitis. Other findings as described above. Electronically signed by Maximiliano Dick 02/05/2017 5:39 PM
--- NOTE | 2017-02-05 17:49 | PROGRESS NOTE ---
DATE: 02/05/2017 PRESENT ILLNESS: The patient has pneumococcal bacteremia and pneumonia. 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 She also has an Escherichia coli urinary tract infection which may be asymptomatic. MEDICINES: The patient is on Rocephin. PHYSICAL EXAMINATION: Vital Signs: Temperature is 98.7 degrees, pulse 99, respirations 20, blood pressure 111/61. Generally: This is an elderly female. She is in no acute distress. She is intubated and sedated. Neck: The neck is less swollen, but it still is indurated. Lungs: There were bilateral rhonchi. Cardiovascular: Heart rate is regular and rapid. Abdomen: Soft and nontender. LABORATORY AND X-RAY: There is no new x-ray today. Blood gases show a pH of 7.21, a pO2 of 147, a PCO2 of 25, creatinine is 4.1. GFR is 11. The organism in the urine causing urinary tract infection has been identified as Escherichia coli. Repeat blood cultures are pending. ASSESSMENT AND PLAN: 1. The patient has severe pneumococcal pneumonia and bacteremia. She also has an Escherichia coli urinary tract infection which probably is asymptomatic and does not need to be treated, but it is susceptible to Rocephin which is the drug we are treating her pneumococcal infection to. Unfortunately the patient has no or very little IgA and there is no replacement product for IgA. That will be a major problem in that it will make her much more susceptible to infection and probably more difficult for her to get over infection. 2. Comorbidities: She is elderly, she has multiple myeloma and she has an IgA deficiency. cc: Tyson Vazquez MD
[2017-02-05] MEDS: DIPRIVAN 1% 1,000 MG/100 ML BOTTLE IV SCH (18:01)
[2017-02-05] MEDS: ALBUMIN 25% IV SCH ×2 (19:11→23:29)
[2017-02-06] MEDS: D50W SYRINGE IV PRN ×3 (01:07→13:10)
[2017-02-06] MEDS: BENADRYL IV SCH ×4 (01:08→21:00)
[2017-02-06] MEDS: SODIUM ACETATE 150 MEQ in D5W 1,000 ML IV SCH ×3 (01:11→16:44)
[2017-02-06] MEDS: SOLU-MEDROL IV SCH ×3 (03:16→21:00)
[2017-02-06] MEDS: XOPENEX NEB INH SCH ×4 (03:35→19:20)
[2017-02-06 04:50] LABS: ALLEN TEST YES; BE -7.2 mmoll (-3.0-3.0); BLOOD TYPE ARTERIAL; DRAW SITE R RADIAL; METHB 0.6 % (0.0-1.5); O2(CT) 10.8 mL/dL (15.0-23.0); PCO2(98.6) 22 mmHg (35-45); PO2(98.6) 155 mmHg (60-100); SAMPLE BLOOD; SAO2 99.3 % (95.0-100.0); SRATE 20 BPM; THB 7.6 g/dL (11.5-17.4); TVOL 600 mL; pH(98.6) 7.46 (7.35-7.45)
[2017-02-06 05:00] LABS: BASO% 0.1 % (0.0-0.8); HEMATOCRIT 20.5 % (37.0-47.0); HEMOGLOBIN 7.1 g/dL (12.0-16.0); IMM GRAN# 2.75 X1000 (0.0-0.04); IMM GRAN% 35.6 % (0.0-0.5); LYMPH# 0.16 X1000 (1.2-3.4); LYMPH% 2.1 % (20.5-51.1); MANUAL DIFF NEEDED? YES; MCH 34.3 PG (27-31); MCHC 34.6 g/dL (33-37); MONO# 0.01 X1000 (0.11-0.59); MONO% 0.1 % (1.7-9.3); MPV 12.1 FL (7.4-10.4); NEUT% 62.1 % (42.2-75.2); PLT 41 X1000 (130-400); RBC 2.07 XMIL (4.2-5.4)
[2017-02-06 05:19] LABS: BANDS 26 % (0-1); LYMPHS 2 % (21-51)
[2017-02-06] MEDS: ROCEPHIN 2 GM in NS 50 ML IV SCH ×2 (05:20→17:01)
[2017-02-06 05:29] LABS: ALBUMIN 2.1 g/dL (3.5-5.0); CALCIUM 5.9 mg/dL (8.8-10.2); MAGNESIUM 1.7 mg/dL (1.5-2.7); POTASSIUM 4.3 mmol/L (3.5-5.1); TOTAL BILIRUBIN 3.65 mg/dL (0.20-1.00); TOTAL PROTEIN 6.6 g/dL (6.3-8.3)
[2017-02-06] MEDS: ALBUMIN 25% IV SCH ×2 (05:34→12:37)
[2017-02-06 05:57] LABS: MODALITY VENTILATOR
[2017-02-06] MEDS ORDERED: CALCIUM GLUCONATE 2 GM in NS 100 ML IV ONE (07:00)
--- NOTE | 2017-02-06 07:37 | Diag Imaging Result Doc PS360 ---
CHEST-PORTABLE - 02/06/2017 INDICATION: respiratory failure TECHNIQUE: COMPARISON: 02/05/2017 FINDINGS: Stable endotracheal tube, nasogastric tube, and right PICC line. Stable lateral pleural effusions and bilateral infiltrates in the bases. Stable severe cardiomegaly and pulmonary vascular congestion. IMPRESSION: No change from prior. Electronically signed by Alfred Gallardo 02/06/2017 7:34 AM
[2017-02-06] MEDS: PEPCID IV SCH ×2 (07:59→21:00)
--- NOTE | 2017-02-06 10:48 | PROGRESS NOTE ---
DATE: 02/06/2017 SUBJECTIVE: This patient is still on mechanical ventilation and sedated. No big changes compared with yesterday. She still has a poor prognosis. She is not making he urine. I talked to the family about her probably needing hemodialysis and they agree with the procedure. Her hemoglobin dropped to 7.1 and I will transfuse 1 unit of PRBC. This patient for now is DNR level 2, no chest compression or cardioversion for this patient. OBJECTIVE: Vital Signs: Temperature 98.5 degrees, pulse 117, respiratory rate 20, blood pressure 140/94, oxygen saturation 100% on mechanical ventilation, 30% FiO2. HEENT: Head normocephalic. No trauma. PERRLA. Neck: Swelling mostly in the anterior part of her neck, left and right side. Warm to touch. Chest: Decreased breath sounds mostly at the bases with coarse breath sounds globally. Cardiovascular: RRR. Tachycardic. Abdomen: Soft, nontender, nondistended. No hepatosplenomegaly. Extremities: No edema. No clubbing. No cyanosis. Neurological: The patient is on mechanical ventilation and sedated. LABORATORY: WBC 7.7, hemoglobin 7.1, hematocrit 20.5, platelet 41,000. Lactate 9.3. Sodium 135, potassium 4.3, chloride 90, bicarbonate 15, BUN 70, creatinine 4.1, glucose 79, calcium 5.9, AST 470, ALT 519, alkaline phosphatase 41, albumin 2.1. ASSESSMENT AND PLAN: 1. Septic shock. We have a positive blood culture that showed streptococcus pneumonia and urine culture that showed E. coli. This patient is on antibiotics. Infectious disease department is following this patient. 2. Neck swelling. I am not quite sure about the cause of this. Probably this is related to the infectious process. ENT is on board. Will continue with the same management for now. 3. Anion gap metabolic acidosis secondary to sepsis and acute kidney injury. Continue with the same management. 4. Hypocalcemia. I will replace the calcium today. 5. Hypomagnesemia. Magnesium today is 1.7. We will continue to monitor. 6. Microcytic anemia. Continue with the same management. Hemoglobin is 7.1 today. I will transfuse this patient with 1 PRBC. 7. Thrombocytopenia. Continue with SCDs and RAVINDER hose. Compared with yesterday it is a little bit worse. Will monitor. 8. Acute on chronic kidney disease. No big changes compared with yesterday but this patient is not making enough urine, so probably this patient will need dialysis today or tomorrow. Nephrology department is following this patient. 9. Elevated liver function tests. Probably secondary to multiorgan failure. We will continue to monitor. 10. Deep vein thrombosis prophylaxis with SCDs and TEDs. CRITICAL CARE TIME: 45 minutes. cc: Lew Gonzalez MD
[2017-02-06] MEDS ORDERED: TIGHT: 0.2 ML/HR MISC PRN (10:52)
[2017-02-06] MEDS ORDERED: HEPARIN IV PRN (10:52)
[2017-02-06] MEDS ORDERED: NS 2,000 ML MISC PRN (10:52)
[2017-02-06] MEDS ORDERED: NS 500 ML ONE (11:45)
[2017-02-06] MEDS: DIPRIVAN 1% 1,000 MG/100 ML BOTTLE IV SCH ×2 (11:51→23:11)
[2017-02-06] MEDS ORDERED: NS 2,000 ML ONE (12:03)
--- NOTE | 2017-02-06 12:09 | OPERATIVE NOTE ---
PROCEDURE DATE: 02/06/2017 PREOPERATIVE DIAGNOSIS: Acute renal failure. POSTOPERATIVE DIAGNOSIS: Acute renal failure. INDICATIONS: The patient is on the ventilator, being treated for sepsis and has developed acute renal insufficiency. She is scheduled for dialysis. I have been asked to place a Vas-Cath. DESCRIPTION OF PROCEDURE: The right groin was prepped and draped in a sterile fashion. We used an ultrasound to identify the femoral vein. We anesthetized the skin, made a stab incision under ultrasound guidance, and accessed the right femoral vein. We then passed the guidewire without difficulty. We dilated the tract sequentially and passed the triple-lumen catheter. Blood came back in each lumen spontaneously. We infused each lumen with saline and locked it off. We secured the flange to the skin with a nylon contained within the tray. ChloraPrep was placed around the exit site and then it was covered with an OpSite dressing. She tolerated it well. cc: Bienvenido Kurtz MD
--- NOTE | 2017-02-06 12:39 | PROGRESS NOTE ---
DATE: 02/06/2017 SUBJECTIVE: She remains on the ventilator sedated. OBJECTIVE: Vital Signs: Blood pressure 140/94, heart rate 119, respiration 18, afebrile. Intake 2.7 L. Output 155 mL. General: On physical exam, sedated, unresponsive. Skin: Warm and dry. HEENT: Conjunctivae are pink. Pupils are equal. Oropharynx is dry. Neck: Supple. Jugular venous distention is present. Heart: Regular with an S4 gallop. Lungs: Have equal breath sounds. Coarse with scattered crackles. Abdomen: Soft, nontender. Bowel sounds present. Extremities: Have 2+ edema. No clubbing or cyanosis. LABORATORY DATA: Sodium 135, potassium 4.3, chloride 90, bicarbonate 15, BUN 70, creatinine 4.1. Hemoglobin 7.1. IMPRESSION: Acute kidney injury. PLAN: I had discussions with all family members yesterday, and they have expressed interest in proceeding with hemodialysis this morning. I have spoken with Dr. Kurtz, who is placing a Vas- Cath and we will begin hemodialysis this afternoon in the ICU. Two potassium bath, 3.5 hours with a goal of 3-4 L as her blood pressure will allow. cc: Be Santos MD
[2017-02-06] MEDS ORDERED: CARDIZEM 100 MG/NS 100 MG/100 ML IVPB ONE (13:52)
[2017-02-06] MEDS: CARDIZEM 100 MG/NS 100 MG/100 ML IVPB IV SCH ×3 (13:54→23:12)
--- NOTE | 2017-02-06 16:28 | EKG Report ---
Test Performed on : 02/06/2017 2:04:46 PM Test Reason : ICU. Not ordered in [place] Blood Pressure : / mmHG Vent. Rate : 142 BPM Atrial Rate : 129 BPM P-R Int : 000 ms QRS Dur : 094 ms QT Int : 336 ms P-R-T Axes : 000 014 -59 degrees QTc Int : 516 ms Atrial fibrillation. with rapid ventricular response. Low voltage QRS Nonspecific ST and T wave abnormality Abnormal ECG When compared with ECG of 04-FEB-2017 02:15, (Unconfirmed) Vent. rate has increased BY 54 BPM T wave inversion less evident in Anterior leads Confirmed by Ramon Castillo DO ([id number]) on 02/06/2017 6:24:29 PM
--- NOTE | 2017-02-06 16:31 | PROGRESS NOTE ---
DATE: 02/06/2017 PRESENT ILLNESS: The patient has pneumococcal bacteremia and pneumonia. She has multi-system failure and has low to nonexistent IgA level. She also has an Escherichia coli urinary tract infection. MEDICINES: The patient is on Rocephin. PHYSICAL EXAMINATION: Vital Signs: Temperature is 99.5 degrees, pulse 126, respirations 15, blood pressure 121/84. General: This is an ill-appearing, elderly female. She is intubated and sedated. Neck: No meningismus. Lungs: Clear to auscultation. Cardiovascular: Regular and rapid heart rate. Abdomen: Soft and nontender. In the patient's right groin there is a Vas-Cath placed today by Dr. Kurtz LABORATORY AND X-RAY: CBC shows a white count of 7730, hemoglobin 7.1, and platelet count 41,000. Blood gases show a pH of 7.46, a PO2 of 155, a pCO2 of 22. Creatinine is 4.1. GFR is 11. The chest x-ray for today shows that the patient has pleural effusions and bilateral infiltrates at the bases. There is severe cardiomegaly and pulmonary vascular congestion. ASSESSMENT AND PLAN: 1. Patient has an overwhelming pneumococcal infection with pneumococcal bacteremia and pneumococcal pneumonia. She also has an IgA deficiency. The plan is to continue high-dose Rocephin and supportive care, including attempts at dialysis. 2. Comorbidities include that she is elderly, she has multiple myeloma and has an IgA deficiency. cc: Tyson Vazquez MD
[2017-02-06] MEDS: LEVOPHED 8 MG in D5 1/2 NS 250 ML IV SCH (23:12)
[2017-02-07] MEDS: XOPENEX NEB INH SCH ×4 (03:00→19:28)
[2017-02-07] MEDS: SOLU-MEDROL IV SCH ×3 (03:10→20:28)
[2017-02-07] MEDS: BENADRYL IV SCH ×4 (03:10→20:28)
[2017-02-07] MEDS: CARDIZEM 100 MG/NS 100 MG/100 ML IVPB IV SCH ×5 (03:30→23:48)
[2017-02-07 04:38] LABS: ALLEN TEST YES; BE 0.4 mmoll (-3.0-3.0); BLOOD TYPE ARTERIAL; DRAW SITE R RADIAL; METHB 0.2 % (0.0-1.5); O2(CT) 11.5 mL/dL (15.0-23.0); PCO2(98.6) 28 mmHg (35-45); PO2(98.6) 77 mmHg (60-100); SAMPLE BLOOD; SAO2 97.7 % (95.0-100.0); SRATE 15 BPM; THB 8.4 g/dL (11.5-17.4); TVOL 600 mL; pH(98.6) 7.52 (7.35-7.45)
[2017-02-07 04:39] LABS: MODALITY VENTILATOR
[2017-02-07 05:14] LABS: BASO% 0.1 % (0.0-0.8); HEMATOCRIT 24.4 % (37.0-47.0); HEMOGLOBIN 8.3 g/dL (12.0-16.0); LYMPH# 0.23 X1000 (1.2-3.4); LYMPH% 1.5 % (20.5-51.1); MANUAL DIFF NEEDED? YES; MCH 32.2 PG (27-31); MCV 94.6 FL (81-99); MPV 12.1 FL (7.4-10.4); PLT 52 X1000 (130-400); RBC 2.58 XMIL (4.2-5.4)
[2017-02-07 05:25] LABS: MAGNESIUM 1.7 mg/dL (1.5-2.7)
[2017-02-07 05:36] LABS: ALBUMIN 2.3 g/dL (3.5-5.0); POTASSIUM 4.2 mmol/L (3.5-5.1); TOTAL BILIRUBIN 4.59 mg/dL (0.20-1.00); TOTAL PROTEIN 6.8 g/dL (6.3-8.3)
[2017-02-07 05:55] LABS: CALCIUM 6.4 mg/dL (8.8-10.2)
[2017-02-07] MEDS: ROCEPHIN 2 GM in NS 50 ML IV SCH ×2 (06:14→17:33)
[2017-02-07] MEDS: SODIUM ACETATE 150 MEQ in D5W 1,000 ML IV SCH (06:15)
[2017-02-07 06:18] LABS: BANDS 20 % (0-1); HYPOCHROM OCCASIONAL; LYMPHS 2 % (21-51); NRBC 1 % (0-0)
[2017-02-07] MEDS ORDERED: NS 2,000 ML ONE (07:11)
[2017-02-07] MEDS ORDERED: HEPARIN ONE (07:11)
[2017-02-07] MEDS: DIPRIVAN 1% 1,000 MG/100 ML BOTTLE IV SCH ×2 (07:37→23:48)
[2017-02-07] MEDS: PEPCID IV SCH ×2 (07:39→20:28)
--- NOTE | 2017-02-07 07:43 | Diag Imaging Result Doc PS360 ---
CHEST-PORTABLE - 02/07/2017 INDICATION: respiratory failure TECHNIQUE: COMPARISON: 02/06/2017 FINDINGS: Support lines and tubes are stable. Stable extensive bibasilar airspace opacification/effusion. Stable cardiomegaly and pulmonary vascular congestion. Stable extensive bilateral chronic rib deformities. No new infiltrates. IMPRESSION: No change from prior. Electronically signed by Alfred Gallardo 02/07/2017 7:40 AM
--- NOTE | 2017-02-07 08:06 | PROGRESS NOTE ---
DATE: 02/07/2017 SUBJECTIVE: She had atrial fibrillation with rapid response during dialysis yesterday and she is currently receiving diltiazem. She is also on Levophed. She is currently unresponsive, on sedation. OBJECTIVE: Vital Signs: Blood pressure 111/65, heart rate 115, respirations 17, afebrile. Physical Examination: General: She is again sedated but in no distress. Skin: Warm and dry. HEENT: Conjunctivae are pink. Neck: Neck veins are difficult to appreciate. Heart: Irregular and tachycardic. Lungs: Have equal breath sounds. A few scattered crackles. Abdomen: Soft, nontender. Bowel sounds present. Extremities: Have 2+ edema and diffuse bruising. Laboratory Data: Sodium 139, potassium 4.2, chloride 89, bicarbonate 20, BUN 66, creatinine 3.8. Hemoglobin 8.3. IMPRESSION: 1. Acute kidney injury. No improvement. Continue with SLED today. A 4 potassium bath with 27 bicarbonate, 8 hour treatment with a goal of 2-4 L of ultrafiltration as her blood pressure allows. 2. Electrolytes are acceptable. Calcium is modestly low but this will be treated with dialysis today. 3. Anemia: Hemoglobin is modestly higher today than yesterday. She had 1 unit of packed red blood cells yesterday. cc: Be Santos MD
[2017-02-07] MEDS ORDERED: CALCIUM GLUCONATE 4.65 MEQ in NS 50 ML IV ONE (09:00)
--- NOTE | 2017-02-07 10:44 | PROGRESS NOTE ---
DATE: 02/07/2017 SUBJECTIVE: This patient is still on mechanical ventilation and sedated. No big changes compared with yesterday. She is now on mechanical ventilation. She still has a poor prognosis. For now, we will continue with DNR level 2. No chest compression or cardioversion for this patient. OBJECTIVE: Vital Signs: Temperature 99 degrees, pulse 111, respiratory rate 15, blood pressure 106/63, oxygen saturation 94% on mechanical ventilation, 30% FiO2. HEENT: Head normocephalic. No trauma. PERRLA. Neck: Swelling, mostly in the anterior part of the neck, left and right side. Warm to touch. Chest: Decreased breath sounds, mostly at the bases with coarse breath sounds. Cardiovascular: RRR. Tachycardic. Abdomen: Soft, nontender, nondistended. No hepatosplenomegaly. Extremities: No edema. No clubbing. No cyanosis. Neurological Examination: This patient is sedated and on mechanical ventilation. Laboratory: WBC 15.7, hemoglobin 8.3, hematocrit 24.4, platelets 52,000. Sodium 139, potassium 4.2, chloride 89, bicarbonate 20, BUN 66, creatinine 3.8, glucose 85, calcium 6.4. AST 177, ALT 370, alkaline phosphatase 58. Albumin 2.3. ASSESSMENT AND PLAN: 1. Septic shock. We have a positive culture that showed a streptococcal pneumonia and also a urine culture that showed E. coli. I will continue with the same antibiotics. Infectious disease department is following this patient closely. 2. Neck swelling. I am not quite sure about the cause of this neck swelling. Probably, this is related with an infectious process. ENT on board. We will continue with the same management for now. 3. Hypocalcemia. I will replace the calcium today. 4. Microcytic anemia. Continue with the same management. Better. 5. Thrombocytopenia. Continue with sequential compression devices and RAVINDER hose. Compared with yesterday, it looks a little bit better. 6. Acute on chronic kidney disease. We started this patient on hemodialysis yesterday. Today is the 2nd round. She started having low blood pressure and atrial fibrillation with rapid ventricular response yesterday. She was placed on a diltiazem drip and she converted to sinus rhythm but she is still a little bit tachycardic. We will continue with the same management for now. 7. Atrial fibrillation with rapid ventricular response. This patient has been placed on a diltiazem drip. It looks sinus today but she is still tachycardic. We will continue with the same management for now. 8. Elevated function tests, probably secondary to multiorgan failure. Today is better. We will monitor. 9. Deep vein thrombosis prophylaxis with sequential compression devices and TEDs. CRITICAL CARE TIME: 35 minutes. cc: Lew Gonzalez MD
[2017-02-07 12:37] LABS: HEPATITIS PROFILE ACUTE SEE COMMENTS
--- NOTE | 2017-02-07 19:06 | PROGRESS NOTE ---
DATE: 02/07/2017 PRESENT ILLNESS: Patient has pneumococcal bacteremia and pneumonia. She has multisystem failure and a low to non-existent IgA level. Patient had a E. coli urinary tract infection. MEDICATIONS: The patient is receiving Rocephin. She also is on steroids. PHYSICAL EXAMINATION: Vital Signs: Temperature is 98.2 degrees, pulse 108, respirations 15, blood pressure 110/63. General: This is an ill-appearing, elderly female. She is intubated and sedated. Neck: Is less swollen and indurated. Lungs: Clear to auscultation. Cardiovascular: Heart rate is regular. Abdomen: Soft and nontender. Extremities: Patient has a PICC in her right arm and a Vas-Cath in her right groin. The sites are not erythematous. LAB AND X-RAY: The chest x-ray shows bibasilar opacification and [place]. [place] [address], hemoglobin 8.3 and platelet count 52,000. Blood gases show a pH of 7.52, a PO2 of 77, a pCO2 of 28, creatinine is 3.8. GFR is 12. ASSESSMENT AND PLAN: Patient has overwhelming pneumococcal infection with pneumonia and bacteremia. She also has an IgA deficiency. COMORBIDITIES: Include being elderly, multiple myeloma and IgA deficiency. cc: Tyson Vazquez MD
[2017-02-07] MEDS: LEVOPHED 8 MG in D5 1/2 NS 250 ML IV SCH (23:47)
[2017-02-07] MEDS: TYLENOL PR PRN (23:49)
[2017-02-08] MEDS: XOPENEX NEB INH SCH ×4 (03:40→19:30)
[2017-02-08] MEDS: SOLU-MEDROL IV SCH ×2 (03:46→11:26)
[2017-02-08] MEDS: BENADRYL IV SCH ×3 (03:46→14:38)
[2017-02-08 05:01] LABS: ALLEN TEST YES; BE -0.6 mmoll (-3.0-3.0); BLOOD TYPE ARTERIAL; DRAW SITE R RADIAL; O2(CT) 21.3 mL/dL (15.0-23.0); PCO2(98.6) 29 mmHg (35-45); PO2(98.6) 78 mmHg (60-100); SAMPLE BLOOD; SAO2 95.6 % (95.0-100.0); SRATE 10 BPM; THB 16.2 g/dL (11.5-17.4); TVOL 600 mL; pH(98.6) 7.48 (7.35-7.45)
[2017-02-08 05:02] LABS: MODALITY VENTILATOR
[2017-02-08 06:03] LABS: HEMATOCRIT 28.8 % (37.0-47.0); HEMOGLOBIN 9.6 g/dL (12.0-16.0); MCH 33.4 PG (27-31); MCHC 33.3 g/dL (33-37); MCV 100.3 FL (81-99); MPV 12.9 FL (7.4-10.4); RBC 2.87 XMIL (4.2-5.4)
[2017-02-08] MEDS: CARDIZEM 100 MG/NS 100 MG/100 ML IVPB IV SCH ×3 (06:17→18:19)
[2017-02-08] MEDS: ROCEPHIN 2 GM in NS 50 ML IV SCH (06:17)
[2017-02-08 06:46] LABS: ALBUMIN 2.5 g/dL (3.5-5.0); TOTAL BILIRUBIN 4.47 mg/dL (0.20-1.00); TOTAL PROTEIN 7.9 g/dL (6.3-8.3)
[2017-02-08 07:05] LABS: POTASSIUM 5.4 mmol/L (3.5-5.1)
[2017-02-08 07:06] LABS: CALCIUM 6.8 mg/dL (8.8-10.2)
--- NOTE | 2017-02-08 07:37 | Diag Imaging Result Doc PS360 ---
EXAM: CHEST-PORTABLE - 02/08/2017 HISTORY: respiratory failure TECHNIQUE: Portable chest 0500 COMPARISON: 02/07/2017 FINDINGS: The tracheal tube, nasogastric tube, and PICC remain in place. Heart size appears upper normal. There are bibasilar opacities which appear stable on the left and mildly decreased on the right. There is apparent small left pleural effusion. There is no pneumothorax. IMPRESSION: Stable left basilar infiltrate/edema. Mild decrease in infiltrate/edema at right base. Electronically signed by Phuc Mcnamara 02/08/2017 7:35 AM
[2017-02-08] MEDS: PEPCID IV SCH (08:21)
--- NOTE | 2017-02-08 10:48 | PROGRESS NOTE ---
DATE: 02/08/2017 SUBJECTIVE: Today Ms. Wayne continues to be intubated. There was a son at the bedside at the time of the encounter. OBJECTIVE: Vital signs: Blood pressure is 100/58, pulse of 103, respirations is 14, temperature 98.4 degrees. General: Ms. Wayne is a 77 years old female. She is in bed, intubated and sedated with propofol. He was currently undergoing hemodialysis. Neck: Supple. Chest: Air entry is bilaterally reduced. There is some bilateral posterior crepitations. Cardiovascular: Regular rate and rhythm. Abdomen: Soft. Bowel sounds are present. Extremities: No pedal edema. The upper extremities seems slightly edematous and there is some ecchymotic changes on both upper extremities bilaterally. There is some swelling also of the upper aspect of the lower extremities. I OS: Urine output was only 35 mL in 24 hours. Dialysis was done yesterday and about 4000 was removed yesterday and there was a plan to remove another 4000 today. IMAGING STUDIES: A chest x-ray this morning shows stable left basilar infiltrates/edema. There is mild decrease in infiltrate and edema at the right base. ASSESSMENT: 1. Septic shock. The patient continues to be needing a very low dose of Levophed. 2. Neck swelling. This was the main reason why the patient presented to the emergency department. We think it is related to some form of infection, strep pneumo bacteremia. 3. Escherichia coli urinary tract infection. 4. Acute on chronic kidney failure. This is in the context of septic shock. I think it is acute tubular necrosis. Patient is getting dialysis now. 5. Atrial fibrillation with rapid ventricular response. Patient is currently on diltiazem drip. 6. Transaminitis secondary to ischemic liver injury. 7. We will continue with both deep venous thrombosis prophylaxis and stress ulcer prophylaxis. NUTRITIONAL NEEDS: We will going to start the patient on Neupro, NG tube feedings, and consult dietitian. cc: Js Pizano MD
[2017-02-08] MEDS: DIPRIVAN 1% 1,000 MG/100 ML BOTTLE IV SCH (11:26)
[2017-02-08] MEDS: D50W SYRINGE IV PRN ×2 (15:40→18:27)
--- NOTE | 2017-02-08 17:17 | PROGRESS NOTE ---
DATE: 02/08/2017 SUBJECTIVE: She remains sedated on the ventilator. She was agitated with sedation vacation. OBJECTIVE: Vital Signs: Blood pressure 99/62, heart rate 106, respiration 18, afebrile. Intake 1.3 L. Output 4 L. PHYSICAL EXAMINATION: No acute distress.Skin: Warm and dry. Conjunctivae are pink. Neck: Neck veins not appreciated. Heart: Regular. Lungs: Have few scattered rhonchi. Abdomen: Soft, nontender. Diminished bowel sounds. Extremities: Have 2+ edema. No clubbing or cyanosis. LABORATORY DATA: Sodium 138, potassium 5.4, chloride 98, bicarbonate 20, BUN 53, creatinine 3.0. IMPRESSION: 1. Acute kidney injury. Continue SLED 8 hours per day. A 3 potassium bath was transitioned to a 4 today. 2. Electrolytes acceptable. She does have a modest hypocalcemia but this mostly corrects with correcting for her albumin. 3. Acid-base in target. cc: Be Santos MD
[2017-02-08] MEDS ORDERED: VANCOMYCIN IV PER PHARMACY MISC SCH (17:45)
[2017-02-08] MEDS ORDERED: MERREM 500 MG in NS 50 ML IV SCH (18:00)
--- NOTE | 2017-02-08 18:06 | PROGRESS NOTE ---
DATE: 02/08/2017 PRESENT ILLNESS: The patient has pneumococcal bacteremia pneumonia associated with multiple organ system failure. She has multiple myeloma and she has a low IgA level. Today, her white count became elevated and I am concerned that she may be developing an infection on top of pneumococcal infection she already has. MEDICATIONS: The patient is on Rocephin. She also is getting steroids. PHYSICAL EXAMINATION: Vital Signs: Temperature is 98.4, pulse 107, respirations 22, blood pressure 99/48. General: This is an ill-appearing, elderly female. She is intubated and sedated. Neck: Is less swollen and indurated. Lungs: Clear to auscultation. Cardiovascular: Heart rate is regular. Abdomen: Soft and nontender. Neurologic: The patient is sedated. She did not respond to verbal stimuli. Extremities: Patient has a PICC in the right arm and a dialysis catheter in the right groin, both sites are not erythematous or purulent. LAB AND X-RAY: Chest x-ray shows a decrease in the right lower lobe infiltrate. The CBC shows a white count of 21,490, hemoglobin 9.6, platelet count 62,000. Patient's blood gases show a pH of 7.48, a pO2 of 78, pCO2 of 29. Blood cultures are sterile. Creatinine is 3. GFR is 15. Liver functions studies are less elevated. ASSESSMENT AND PLAN: The patient has overwhelming pneumococcal infection. She may be developing a super infection. I have ordered 2 new blood cultures and a sputum culture to be obtained. I have discontinued cefepime and have started the patient on a combination of meropenem and vancomycin. COMORBIDITIES: Include being elderly, multiple myeloma and IgA deficiency. cc: Tyson Vazquez MD
[2017-02-08 19:55] VITALS: BP 120/49
[2017-02-08] MEDS ORDERED: VANCOMYCIN 1 GM/NS 1 GM/250 ML IVPB IV ONE (20:00)
--- NOTE | 2017-02-14 06:15 | DISCHARGE SUMMARY ---
ADMISSION DATE: 02/02/2017 DISCHARGE DATE: 02/08/2017 DATE OF : 02/08/2017 TIME OF : 20:58. INVASIVE PROCEDURE DONE DURING THIS ADMISSION: Dialysis catheter was placed by Dr. Kurtz on 02/06/2017. CONSULTATION DURING ADMISSION: 1. Nephrology was consulted. Patient was seen by Dr. Santos. 2. Pulmonary Medicine was consulted. Patient was seen by Dr. Ford. 3. Infectious Disease was consulted. Patient was seen by Dr. Vazquez. 4. Surgery was consulted. Patient was seen by Dr. Kurtz. 5. ENT was also consulted. IMAGING STUDIES: 1. CT scan of the chest was done which shows multifocal lucencies bony lesions suggestive of multiple myeloma or metastatic disease. 2. A CT scan of the neck shows nonspecific soft tissue edema of the right side of the neck, effacement of the right vallecula due to edema of the hypopharynx. 3. A CT scan of the abdomen and pelvis was done which shows anasarca, ascites and pleural effusions with questionable colitis. ADMISSION DIAGNOSES: 1. Right neck edema, likely sepsis. 2. Microcytic anemia. 3. Acute kidney injury. DIAGNOSES AT THE TIME OF : 1. Acute hypoxemic respiratory failure. The patient was vent dependent. 2. intractable septic shock. 3. Neck swelling with effacement of the right vallecula likely secondary to right peritonsillar cellulitis. 4. Strep pneumo bacteremia. 5. E. Coli UTI. 6. Acute on chronic kidney injury secondary to ATN. 7. Atrial fibrillation with rapid ventricular response. 8. Shock liver. 9. History of multiple myeloma. 10. Paranoia with hallucinations. HISTORY OF PRESENTING COMPLAINT: Ms. Wayne is a 77-year-old, female , who was admitted initially at [facility] for a geriatric psych evaluation. While over there, patient was noted to be saturating in the low 90s with audible stridor. Patient was subsequently referred to [facility] for further medical evaluation. In the ER, patient was evaluated and found to be having airway compromise, was intubated in the ER and subsequently admitted to the ICU. Patient had a very poor prognosis throughout the ICU stay. She was evaluated by multiple sub specialties because of worsening renal function, abnormality and acid base, electrolytes, a decision was made to start dialyzing. Dialysis catheter was placed and dialysis was started. Antibiotics continued. Patient was seen by both pulmonary medicine, ID and nephrology. Daily conversations were held with the son, and despite the standard care of therapy, Ms. Wayne unfortunately succumbed to her disease on 02/08/2017 at about 20:58 where she was found to have asystolic strip. The patient was pronounced by two ICU nurses. cc: Js Pizaon MD MTDD
--- NOTE | 2017-03-20 19:17 | ED EKG INTERP ---
This chart was entered by Karol Ko Scribe, acting as scribe for Kathy Koroma MD. EKG Interpretation - EKG Time of EKG reading by physician:: 15:39 EKG Read and Signed by:: Kathy Koroma EKG Interpretation (*Must complete 3 of following elements*): Abnormal Rate: 97 Rhythm: undetermined rhythm Comments: nonspecific ST and T wave abnormality. Attestation - Physician/ VALENTIN Attestation Patient care was provided by Advanced Practice Provider:: No The physician spent face to face time with patient:: No Advanced Practice Provider documentation review:: Supervising physician onsite and consulted in the evaluation and care of this patient. The physician did not have a face to face encounter with the patient. This chart was documented by the indicated scribe, (Karol Ko Scribe) and accurately reflects the services I performed and decisions made by me, Kathy Koroma MD, as attested by the provider's signature.
== END 2017-02-08 20:58 | disposition expired ==
LOC: ED 14:27 → ICU 20:16 → SUATTDRO 20:16 → ICU 21:13
PROVIDERS: ATTEND Internal Medicine